=== PATIENT | male | born 2005 | race Caucasian/White ===

== ENCOUNTER 2023-07-09 00:45 | Emergency (ER) | payer MEDICAID, SELFPAY ==
[2023-07-09 00:47] VITALS: BP 134/69; PULSE 81; RESP 16; TEMP 35.7; O2SAT 100; BMI 21.7
--- NOTE | 2023-07-09 01:01 | EDS_ITS ---
HPI HPI - GI History of Present Illness Chief Complaint: Constipation Informant: patient Narrative Narrative: Patient states for the last 3 days he has been constipated, feeling like he needs to have a bowel movement but cannot, except for very small amount of hard stool. He is having some intermittent abdominal discomfort that radiates into his rectum/anus, it was more severe just prior to coming here but seems to have let off. He denies any urinary problems. Incidentally separate, he has a small painful sore on his scrotum for several days. PFSH PFSH Medical History (Updated 07/09/23 @ 01:08 by Lita Hutchins) Anxiety Depression Smoker Substance abuse Home Medications ondansetron 4 mg disintegrating tablet 4 mg PO Q8H PRN PRN Nausea #10 tabs 11/06/15 [Rx Last Taken Unknown] dicyclomine 10 mg capsule 20 mg (2 x 10 mg) PO Q6H PRN PRN abdominal pain #20 CAPSULES 07/09/23 [Rx Last Taken Unknown] polyethylene glycol 3350 17 gram oral powder packet (Miralax) 17 g PO DAILY #6 ea 07/09/23 [Rx Last Taken Unknown] Allergy/AdvReac Type Severity Reaction Status Date / Time No Known Allergies Allergy Verified 11/06/15 10:43 Surgical History (Updated 07/09/23 @ 01:08 by Lita Hutchins) History of cholecystectomy Social History Smoking Status: Never smoker ROS ROS ED Constitutional Constitutional ED: Denies chills or fever(s) Eyes Eyes: Denies change in vision or diplopia ENT ENT ED: Denies rhinorrhea or sore throat Cardiovascular Cardiovascular: Denies chest pain or palpitations Respiratory/Chest Respiratory/Chest: Denies cough or dyspnea Gastrointestinal Gastrointestinal: Reports abdominal pain and constipation; Denies diarrhea, nausea or vomiting Genitourinary Genitourinary ED: Reports other Details: scrotal painful lesion ; Denies dysuria or hematuria Musculoskeletal Musculoskeletal: Denies back pain or neck pain Integumentary Denies abscess or rash Neurologic Neurologic: Denies headache(s), paresthesias or weakness Psychiatric Psychiatric: Denies anxiety or suicidal thoughts EXAM Physical Exam Const Vital Signs: 07/09/23 00:47 Temperature 96.2 F L Temperature Source Temporal Pulse Rate 81 Respiratory Rate 16 Blood Pressure 134/69 H Blood Pressure Mean 90 Pulse Ox 100 Oxygen Delivery Method Room Air Positive well nourished and well developed General Appearance ED: well developed and NAD HEENT Reports moist mucous membranes normocephalic and atraumatic Eyes PERRL and EOMs intact bilaterally Neck full ROM and supple Resp normal respiratory effort and clear to auscultation bilaterally Cardio regular rate, regular rhythm and no murmurs GI non-distended GI Narrative: Mild tenderness suprapubic and left lower quadrant no guarding or rebound. Patient refuses rectal exam. Auscultation: normoactive bowel sounds Palpation: soft Narrative: On the left hemiscrotum there is a small papule/pustule does not appear to be ready to burst and is very tiny, there is no fluctuance or surrounding cellulitis. No petechia. Penis normal. Testicles nontender. Back/Spine no CVA tenderness General Back: other FROM Extremity normal to inspection General Extremety ED: Negative for edema, pulses abnormal or tenderness General Extremity: Negative for edema or pulses abnormal Neuro oriented x3, CN's II-XII intact bilaterally and no sensory deficits noted Sensorium / Orientation: awake and alert Motor Exam: strength 5/5 throughout Skin no rashes or lesions noted and no wounds MDM MDM MDM Narrative Medical decision making narrative: I think the patient is constipated and having colonic spasms as a result. I offered him several options. First is a rectal exam with manual disimpaction, he declines that. Second is a fleets enema and the third is a soapsuds enema, he declines all of this. I even offered to have nurses show him how to do a fleets enema and allow him to do it himself without anyone helping him, and he refuses all that wants to try MiraLAX which was option #5. He understands that it will not provide a quick fix. With regards to the pustule on his scrotum, I offered to try to pop it for him and he declines that as well. It does not a ppear to require incision and drainage. Discharge Plan Triage Chief Complaint: Constipation Other Complaint: Complaint ED Provider: Nadir Tyler Dx/Rx/DC Orders Clinical Impression: Skin pustule, Constipation Instructions: Treating Constipation Prescriptions: New polyethylene glycol 3350 [Miralax] 17 gram powder in packet 17 g PO DAILY Qty: 6 0RF dicyclomine 10 mg capsule 20 mg PO Q6H PRN PRN (Reason: abdominal pain) Qty: 20 0RF No Action ondansetron 4 MG tablet 4 mg PO Q8H PRN PRN (Reason: Nausea) Qty: 10 0RF Primary Care Provider: Mercedes Castaneda Referrals: Doctor,Your [Non-Staff] - 3-5 Days if not improving Activity Restrictions/Additional Instructions: Tonight, consider taking 3 packets of MiraLAX, dissolved in 24-32 ounces of any nonalcoholic beverage, and drink plenty of fluid afterwards and attempt to perform a miniature colon flush. Disposition Disposition: Home, Self Care
[2023-07-09] MEDS: Dicyclomine 10 MG Capsule 20 MG PO (01:06)
[2023-07-09 01:22] VITALS: BP 130/74; PULSE 75; RESP 16; TEMP 36.6; O2SAT 97
== END 2023-07-09 01:30 | disposition home or self-care (01) ==
LOC: ED 01:17
PROVIDERS: Emergency Provider Emergency Medicine; Visit Provider Emergency Medicine
DX: K59.00 Constipation, unspecified (principal); L08.9 Local infection of the skin and subcutaneous tissue, unspecified; Z90.49 Acquired absence of other specified parts of digestive tract
CPT/HCPCS: 99283

== ENCOUNTER 2023-08-16 00:21 | Emergency (ER) | payer MEDICAID, SELFPAY ==
[2023-08-16 00:24] VITALS: BP 137/99; PULSE 136; RESP 24; TEMP 36.6; O2SAT 96; BMI 22.5
--- NOTE | 2023-08-16 00:31 | RAD_ITS ---
INDICATION: injury -- thumb EXAMINATION/TECHNIQUE: X-RAY - RIGHT HAND XR Fingers Min 2 Views 4 VIEWS COMPARISON: No relevant prior comparison study available FINDINGS: SOFT TISSUES: No soft tissue swelling or gas. No radiopaque foreign body. BONES/JOINTS: No acute fracture or subluxation.. Normal alignment. Preservation of the joint space.. No sclerotic or destructive changes observed. RAD/Finger(s) Min 2 Views IMPRESSION: No fracture or malalignment. Electronically Signed: Fabien Rhodes MD at 1:19 EDT ,
--- NOTE | 2023-08-16 00:32 | EX.ED.UPPERE ---
HPI History of Present Illness Chief Complaint: Disclocation Informant: patient and parent Narrative Narrative: [id number] presents concerns about right thumb dislocation after twisting a bottle. He states he felt a crack. No paresthesias. No history of similar. [facility] Medical History Anxiety Depression Smoker Substance abuse Allergy/AdvReac Type Severity Reaction Status Date / Time No Known Allergies Allergy Verified 08/16/23 00:24 Surgical History History of cholecystectomy Social History Smoking Status: Current every day smoker tobacco type: cigarettes and e-cigarettes ROS ROS ED Constitutional Constitutional ED: Denies chills, fever(s) or sweats Eyes Eyes: Denies change in vision ENT ENT ED: Denies dysphagia or sore throat Cardiovascular Cardiovascular: Denies chest pain, leg edema, palpitations or racing heartbeat Respiratory/Chest Respiratory/Chest: Denies cough, dyspnea or dyspnea on exertion Gastrointestinal Gastrointestinal: Denies abdominal pain, diarrhea, nausea or vomiting Genitourinary Genitourinary ED: Denies dysuria, hematuria or urinary frequency Musculoskeletal Musculoskeletal: Reports extremity pain and other Details: Right thumb pain ; Denies back pain or neck pain Integumentary Denies rash or wounds Neurologic Neurologic: Denies headache(s), paresthesias or weakness EXAM Physical Exam Const Vital Signs: 08/16/23 00:24 Temperature 97.8 F Temperature Source Temporal Pulse Rate 136 H Respiratory Rate 24 H Blood Pressure 137/99 H Blood Pressure Mean 111 Pulse Ox 96 Oxygen Delivery Method Room Air Positive well nourished and well developed Constitutional Narrative: Anxious, nontoxic General Appearance ED: well developed HEENT Reports moist mucous membranes normocephalic and atraumatic Eyes PERRL, EOMs intact bilaterally and conjunctivae normal General Eye ED: Yes normal appearance of both eyes Neck no lymphadenopathy and supple General: Negative for tenderness Chest Wall Chest: Negative for tenderness Resp normal respiratory effort and normal air movement Effort and Inspection: symmetric chest movement; Negative for respiratory distress Cardio regular rhythm and no murmurs Rate: tachycardic Peripheral Pulses: pulses 2+ throughout GI normal to inspection, nondistended, normoactive bowel sounds and non-tender Palpation: Negative for guarding or rebound tenderness present Back/Spine no CVA tenderness and no thoracic nor lumbar tenderness Extremity Extremity Narrative: Right upper extremity: Hand examination. Tender palpation at MCP however is able to passively range of motion flexion extension both at the MCP and interphalangeal joint. Skin intact. Neuro vas intact distally. General Extremety ED: Yes tenderness; Negative for edema General Extremity: Negative for edema Neuro oriented x3 and no sensory deficits noted Sensorium / Orientation: awake and alert Skin no rashes or lesions noted and no wounds MDM MDM MDM Narrative Medical decision making narrative: Interventions / MDM: Differential diagnosis: Finger sprain Diagnosis considered but do not suspect: Fracture/dislocation however x-ray negative My EKG interpretation: N/A Imaging independently reviewed and interpreted by myself: 4 view x-ray right thumb: No fracture or dislocation noted. External documents reviewed: N/A Test considered but not ordered:N/A ED course: Patient concern for dislocation clinically there is no dislocation. Is anxious therefore tachycardic. Motrin ordered x-ray ordered of the right thumb. X-ray interpreted myself no fracture or dislocation. Neuro vas intact distally. AlumaFoam splint provided for comfort. Mother states there is Motrin Tylenol at home which she will take as needed. All questions were answered. Re-evaluation: stable Disposition discussed with patient/family/significant other: Patient and family Case discussed with consulting clinician: N/A This note was generated with [employer] dictation software. It may contain incorrect words, spelling, and punctuation that were not noted in checking the note before signing. Discharge Plan Triage Chief Complaint: Disclocation Other Complaint: Laceration ED Provider: James Kang Dx/Rx/DC Orders Clinical Impression: Injury of right thumb, Sprain of hand, thumb, right Instructions: ED Finger Sprain Primary Care Provider: Care Physician,No Primary Referrals: Prabha Hoffmann [Non-Staff] - 1-2 Weeks Care Physician,No Primary [Primary Care Provider] - Activity Restrictions/Additional Instructions: X-ray negative. Splint for comfort. Continue Tylenol or Motrin every 6 hours as needed. Disposition Disposition: Home, Self Care Discharge Date/Time: 08/16/23 01:02
[2023-08-16] MEDS: Ibuprofen 600 MG Tablet PO (00:35)
[2023-08-16 01:00] VITALS: RESP 16
== END 2023-08-16 01:02 | disposition home or self-care (01) ==
LOC: ED 00:53
PROVIDERS: Emergency Provider Emergency Medicine; Visit Provider Emergency Medicine
DX: S63.91XA Sprain of unspecified part of right wrist and hand, initial encounter (principal); F17.210 Nicotine dependence, cigarettes, uncomplicated; S69.81XA Other specified injuries of right wrist, hand and finger(s), initial encounter; X58.XXXA Exposure to other specified factors, initial encounter; F17.290 Nicotine dependence, other tobacco product, uncomplicated
CPT/HCPCS: 73140; 99283

== ENCOUNTER 2024-03-16 14:20 | Inpatient (IN) | payer SELFPAY ==
[2024-03-16] VITALS (7 sets, daily range): BP systolic 104–120; BP diastolic 70–76; PULSE 67–89; RESP 14–20; TEMP 36.4–36.8; O2SAT 94–100; BMI 22.8; BMI 20.4
[2024-03-16] MEDS: Naloxone 2 MG/2 ML Syringe IV (14:32)
[2024-03-16] MEDS: Ondansetron 4 MG/2 ML Vial IV (14:39)
--- NOTE | 2024-03-16 14:42 | EX.ED.DYSGE1 ---
HPI History of Present Illness Chief Complaint: Substance Abuse Narrative Narrative: Patient is a 18-year-old male with a past medical history of substance abuse, anxiety, depression who presented to the emergency department chief complaint of overdose. Patient states that he was using meth and fentanyl today and according to his mother at bedside he overdosed and a friend of his gave him Narcan prior to arrival here. States that she was told that he turned blue which was ultimately what prompted them to give the Narcan. Patient states that he has not been suicidal homicidal. Patient does want to go through detox. [facility] Medical History Anxiety Depression Substance abuse Smoker Home Medications ?Medication ?Instructions ?Recorded ?Last Taken ?Type NK 03/16/24 Unknown History Allergy/AdvReac Type Severity Reaction Status Date / Time No Known Allergies Allergy Verified 03/16/24 14:29 Surgical History History of cholecystectomy Social History Smoking Status: Current every day smoker tobacco type: cigarettes and e-cigarettes ROS ROS ED ROS Narrative Constitutional: Denies any fevers, chills, headaches, lightness, dizziness Eyes: Denies change in vision double vision blurry vision Cardiovascular: Denies chest pain Respiratory: Denies coughing wheezing shortness of breath Abdomen: Admits to nausea denies abdominal pain diarrhea Neurological: Denies numbness, weakness, tingling Musculoskeletal: Denies back pain Skin: Denies rashes or lesions EXAM Physical Exam Narrative Exam Narrative: General: Patient lying in bed he appeared to be not feeling well with emesis bag in hand Head: Atraumatic, normocephalic Eyes: PERRL bilateral, EOMI by, no conjunctival injection noted Neck: Soft, supple, trachea midline Cardiovascular: Regular rate and rhythm no murmur gallops or rubs noted Respiratory: Clear to auscultation bilaterally no rales rhonchi wheeze noted Abdomen: No tenderness palpation Extremities: +5/5 strength noted in the bilateral lower extremities Neurological: Patient following commands knew that he was at [facility] Skin: Warm, dry and intact Const Vital Signs: 03/16/24 14:21 03/16/24 15:21 03/16/24 16:00 Temperature 97.5 F L Temperature Source Temporal Pulse Rate 88 76 78 Respiratory Rate 18 20 H 16 Blood Pressure 111/76 104/70 109/73 Blood Pressure Mean 87 81 85 Pulse Ox 99 98 98 Oxygen Delivery Method Room Air Room Air Room Air 03/16/24 17:00 03/16/24 17:32 03/16/24 18:00 Temperature 98.2 F Temperature Source Pulse Rate 89 74 67 Respiratory Rate 18 16 14 Blood Pressure 110/71 118/74 120/71 Blood Pressure Mean 84 88 87 Pulse Ox 100 98 98 Oxygen Delivery Method Room Air MDM MDM MDM Narrative Medical decision making narrative: Patient is a 18-year-old male who presents to the emergency department with a chief complaint of overdose. Patient received Narcan prior to arrival and then once again when he arrived here. Patient will have medical clearance here and then be evaluated for detox program. Patient CBC reviewed and was largely unremarkable no evidence leukocytosis white blood count normal at 9.1, hemoglobin 16.2, platelet count normal at 323. Patient sodium normal at 136, potassium was 3.3, creatinine normal at 1.04. Patient drug screen was positive for amphetamine, MDMA, cannabis. Alcohol level is less than 3. Social work had discussion with the patient at bedside and he would like to proceed inpatient detox. Patient's case was discussed with the hospitalist Dr. Liu who accept patient for admission. Patient notified is agreeable this plan all question concerns answered at bedside. Lab Data Labs: Laboratory Results - last 24 hr 03/16/24 03/16/24 14:20 14:25 WBC 9.1 RBC 5.45 Hgb 16.2 Hct 46.7 MCV 85.7 MCH 29.7 MCHC 34.7 RDW Std Deviation 38.8 RDW Coeff of Phuong 12.7 Plt Count 323 MPV 8.9 Immature Gran % (Auto) 0.600 Neut % (Auto) 60.2 Lymph % (Auto) 31.2 [place] % (Auto) 6.1 Eos % (Auto) 1.0 Baso % (Auto) 0.9 Absolute Neuts (auto) 5.5 Absolute Lymphs (auto) 2.83 Nucleated RBC % 0 Sodium 136 Potassium 3.3 L Chloride 100 Carbon Dioxide 28.0 Anion Gap 8 BUN 12 Creatinine 1.04 Estim Creat Clear Calc 129.65 Est GFR (MDRD) Af Amer 116 Est GFR (MDRD) Non-Af 96 BUN/Creatinine Ratio 11.5 Glucose 131 H Calcium 9.1 Urine Opiates Screen NEGATIVE Urine Methadone Screen NEGATIVE Ur Barbiturates Screen NEGATIVE Ur Phencyclidine Scrn NEGATIVE Ur Amphetamines Screen POSITIVE H MDMA (Ecstasy) Screen POSITIVE H U Benzodiazepines Scrn NEGATIVE Urine Cocaine Screen NEGATIVE U Cannabinoids Screen POSITIVE H Ur Drug Screen Comment Ethyl Alcohol < 3.0 Discharge Plan Triage Chief Complaint: Substance Abuse ED Provider: Clive Aponte Dx/Rx/DC Orders Clinical Impression: Active substance abuse Prescriptions: No Action NK Primary Care Provider: Care Physician,No Primary Referrals: Care Physician,No Primary [Primary Care Provider] - Print Language: Slovak Disposition Disposition: Acute Care Hospital [facility]
[2024-03-16 14:47] LABS: Absolute Lymphocyte Count 2.83 X10^3/uL (0.83-4.51); Absolute Neutrophil Count 5.5 X10^3/uL (2.0-7.7); Basophil# 0.08 X10^3/uL; Basophil% 0.9 % (0-1); Eosinophil# 0.09 X10^3/uL; Hematocrit 46.7 % (40-54); Hemoglobin 16.2 g/dL (13.0-16.5); Lymphocyte # 2.83 X10^3/ul (0.83-4.51); Lymphocyte % 31.2 % (19-41); Mean Corp Hgb Conc 34.7 g/dL (32-36); Mean Corpuscular Hgb 29.7 pg (27.0-32.0); Mean Corpuscular Volume 85.7 fL (80-94); Mean Platelet Vol. 8.9 fl (6.2-12.0); Monocyte# 0.55 X10^3/uL; Monocyte% 6.1 % (0-10); NRBC Flagged by Analyzer 0 % (0-5); Neutrophil # 5.46 X10^3/uL (2.7-7.7); Neutrophil % 60.2 % (47-70); Platelet Count 323 K/mm3 (150-450); RBC Distribution Width CV 12.7 % (11.6-14.6); RBC Distribution Width SD 38.8 fl (35.1-43.9); Red Blood Count 5.45 M/mm3 (4.6-6.2); White Blood Count 9.1 K/mm3 (4.4-11.0)
[2024-03-16 15:04] LABS: Anion Gap 8 (5-15); BUN 12 mg/dL (7-18); BUN/Creat Ratio 11.5 RATIO (10-20); Calcium,Total 9.1 mg/dL (8.5-10.1); Chloride 100 mmol/L (98-107); Creatinine, Serum 1.04 mg/dL (0.70-1.30); EST Glomerular Filtration Rate 96 mL/min (>60); Est Glom Filt Rate - Afr Amer 116 mL/min (>60); Estimated Creatinine Clearance 129.65 ml/min; Glucose 131 mg/dL (74-106); Potassium 3.3 mmol/L (3.5-5.1); Sodium Level 136 mmol/L (136-145)
[2024-03-16 15:17] LABS: Alcohol, Blood (Medical)-Serum < 3.0 mg/dL
[2024-03-16 16:49] LABS: Amphetamine Urine VISTA POSITIVE (<1000 ng/mL); Barbiturate Urine VISTA NEGATIVE (< 200 ng/mL); Benzodiazepine Urine VISTA NEGATIVE (< 200 ng/mL); Cocaine Urine VISTA NEGATIVE (< 300 ng/mL); Ecstacy Urine VISTA POSITIVE (< 500 ng/mL); Methadone Urine VISTA NEGATIVE (< 300 ng/mL); PCP Urine VISTA NEGATIVE (< 25 ng/mL); THC Urine VISTA POSITIVE (< 50 ng/mL); Vista UDS pH Range 5
--- NOTE | 2024-03-16 18:12 | ED.RN ---
tao hinton talked at length with pt. pt agreeable to [facility] for [facility] program after reviewing the contract. signed cotract jorge hinton
--- NOTE | 2024-03-16 18:40 | HP.PCM.HOS_ITS ---
HPI - General General Date of Admission: 03/16/24 Date of Service: 03/16/24 Chief Complaint: Opiate overdose HPI Narrative DARI MENDOSA, is a 18 M who presented to the emergency department at [facility] on 03/15/2024 after being brought here by a friend. He evidently had an overdose with methamphetamines and fentanyl according to his mother with whom he presented. A friend gave him Narcan prior to arrival. His mother was told he turned blue which was ultimately what prompted Narcan utilization. Apparently, there is a long family history of substance abuse with family members currently trying to achieve and maintain sobriety. Patient's drug of choice is methamphetamines at baseline and he recently started using opiates within the last month. He has unable to tell me how much he is using on a daily basis but has been using daily as of recently. He also admits to tobacco abuse/marijuana use and denies any alcohol use. He has never been through detox before. Vital signs on presentation showed temperature of 97.5, heart rate 88, respiratory rate 18, blood pressure 111/76 and pulse ox was 99 percent on room air. CBC was unremarkable. Chemistry panel showed mild hypokalemia potassium of 3.3 but was otherwise fairly unremarkable. Toxicology screen was positive for amphetamines, ecstasy, cannabinoids and negative for alcohol. [facility] Medical History Asthma Anxiety Depression Substance abuse Smoker Home Medications ?Medication ?Instructions ?Recorded ?Last Taken ?Type NK 03/16/24 Unknown History Allergy/AdvReac Type Severity Reaction Status Date / Time No Known Allergies Allergy Verified 03/16/24 14:29 Family History (Updated 03/16/24 @ 20:[address] Kimberly Liu DO) Other Substance abuse Surgical History History of cholecystectomy Social History (Updated 03/16/24 @ 20:[address] Kimberly Liu DO) housing: homeless current occupational status: unemployed Smoking Status: Current every day smoker tobacco type: cigarettes and e- cigarettes alcohol intake: never substance use type: marijuana, amphetamines and opiates ROS Constitutional Constitutional: Denies anorexia, change in weight, chills, fatigue, fever(s), malaise, night sweats, weakness or other Eyes Eyes: Denies blurry vision, change in eye color, change in vision, discharge from eye(s), double vision, erythema, eye pain, loss of vision or other ENT HEENT: Denies abnormal hearing, dysphagia, ear pain, epistaxis, headache(s), hearing loss, nasal congestion, nasal discharge, post nasal drip, sinus pressure, sore throat or other Cardiovascular Cardiovascular: Denies chest pain, claudication, dyspnea on exertion, edema, lightheadedness, orthopnea, palpitations, paroxysmal nocturnal dyspnea, rapid heart rate, syncope or other Respiratory/Chest Respiratory/Chest: Denies cough, dyspnea, excessive phlegm production, hemoptysis, productive cough, shortness of breath at rest, shortness of breath with exertion, wheezing or other Gastrointestinal Gastrointestinal: Denies abdominal pain, coffee ground emesis, constipation, diarrhea, dyspepsia, hematemesis, hematochezia, loose stools, melena, nausea, vomiting or other Genitourinary Genitourinary: Denies burning urination, difficulty urinating, dysuria, hematuria, nocturia, urinary frequency, urinary hesitancy, urinary incontinence, urinary urgency or other Musculoskeletal Musculoskeletal: Denies arthralgias, back pain, joint pain, joint stiffness, joint swelling, myalgias, neck pain or other Neurologic Neurologic: Denies abnormal gait, abnormal speech, confusion, disequilibrium, dizziness, focal weakness, headache(s), numbness, paresthesias, seizure-like activity, seizures, syncope, tingling, tremor(s) or other Psychiatric Psychiatric: Denies anxiety, depression, homicidal ideation, suicidal ideation or other Endocrine Endocrinology: Denies change in body appearance, cold intolerance, excessive sweating, heat intolerance, polydipsia, polyuria or other Hematologic/Lymphatic Hematologic/Lymphatic: Denies anemia, easy bleeding, easy bruising, lymphadenopathy or other Allergic/Immunologic Allergic/Immunologic: Denies rhinitis, hives, eczemia, asthma or other Vital Signs Vital Signs Vital Signs: 03/16/24 14:21 03/16/24 15:21 03/16/24 16:00 Temperature 97.5 F L Temperature Source Temporal Pulse Rate 88 76 78 Respiratory Rate 18 20 H 16 Blood Pressure 111/76 104/70 109/73 Blood Pressure Mean 87 81 85 Pulse Ox 99 98 98 Oxygen Delivery Method Room Air Room Air Room Air 03/16/24 17:00 03/16/24 17:32 03/16/24 18:00 Temperature 98.2 F Temperature Source Pulse Rate 89 74 67 Respiratory Rate 18 16 14 Blood Pressure 110/71 118/74 120/71 Blood Pressure Mean 84 88 87 Pulse Ox 100 98 98 Oxygen Delivery Method Room Air Weight Weight: 80.9 kg Body Mass Index (BMI) 22.8 Physical Exam Const oriented x3, no apparent distress and average body habitus; Negative for healthy appearing or well nourished Constitutional Narrative: Sleepy but oriented, young, thin, white male, sitting up in bed, somewhat diaphoretic likely related to Narcan, appears comfortable, nontoxic, somewhat disinterested in conversation HEENT normocephalic, head/scalp atraumatic, hearing grossly normal bilaterally and moist oral mucous membranes HEENT Narrative: Mallampati 2, no thrush Resp normal respiratory effort, no retractions, no use of accessory muscles and clear to auscultation bilaterally Auscultation: Negative for rales, rhonchi or wheezes Cardio regular rate, regular rhythm, S1 normal heart sound, S2 normal heart sound, no murmurs, no rub, no gallops and no clicks GI normal to inspection, nondistended, normoactive bowel sounds, soft to palpation and non-tender Extremity no clubbing, cyanosis or edema Extremity Narrative: Pedal and radial pulses are 2+ Neuro oriented x3, moves all extremities and no focal motor deficits Speech: speech normal Psych Psych Narrative: Affect is flat and mood is depressed with poor eye contact and minimal interaction Results Lab / Micro Data 03/16/24 14:25 03/16/24 14:25 Labs: Laboratory Results - last 24 hr 03/16/24 14:20: Urine Opiates Screen NEGATIVE, Urine Methadone Screen NEGATIVE, Ur Barbiturates Screen NEGATIVE, Ur Phencyclidine Scrn NEGATIVE, Ur Amphetamines Screen POSITIVE H, MDMA (Ecstasy) Screen POSITIVE H, U Benzodiazepines Scrn NEGATIVE, Urine Cocaine Screen NEGATIVE, U Cannabinoids Screen POSITIVE H, Ur Drug Screen Comment 03/16/24 14:25: WBC 9.1, RBC 5.45, Hgb 16.2, Hct 46.7, MCV 85.7, MCH 29.7, MCHC 34.7, RDW Std Deviation 38.8, RDW Coeff of Phuong 12.7, Plt Count 323, MPV 8.9, Immature Gran % (Auto) 0.600, Neut % (Auto) 60.2, Lymph % (Auto) 31.2, [place] % (Auto) 6.1, Eos % (Auto) 1.0, Baso % (Auto) 0.9, Absolute Neuts (auto) 5.5, Absolute Lymphs (auto) 2.83, Nucleated RBC % 0, Sodium 136, Potassium 3.3 L, Chloride 100, Carbon Dioxide 28.0, Anion Gap 8, BUN 12, Creatinine 1.04, Estim Creat Clear Calc 129.65, Est GFR (MDRD) Af Amer 116, Est GFR (MDRD) Non-Af 96, BUN/Creatinine Ratio 11.5, Glucose 131 H, Calcium 9.1, Ethyl Alcohol < 3.0 Assessment & Plan Assessment/Plan (1) Opiate abuse, continuous: (2) Methamphetamine abuse: (3) Tobacco abuse: (4) Opiate overdose: (5) Hypokalemia: PLAN: Plan Opiate abuse -Patient with overdose on presentation -Unable to tell me how much she is utilizing however he said he is a relatively new user at this time -Has been in the emergency department for an extended period time since Narcan and has remained awake -Given this he is okay for the medical floor but will monitor -Start Subutex taper per [facility] protocol -Supportive medication as needed -Patient states he uses intranasal with no history of IVDU -Consult 180 assistance with discharge planning Hypokalemia -P.o. potassium given -Repeat lab in a.m. -Check a.m. magnesium and phosphorus Methamphetamine abuse -This sounds like the patient's drug of choice -We did discuss that there is no detox for this he voices understanding Marijuana use -Recommend cessation Tobacco abuse -Nicotine patch available -Patient states he smokes about a half a pack daily Homelessness -Complicates discharge planning -Patient may benefit from inpatient rehab DVT prophylaxis -Low risk -Encourage early and frequent ambulation CODE STATUS -Full code Charges/Coding Visit Charges Inpatient E&M: 93263 Init Hosp L2
--- NOTE | 2024-03-16 18:56 | CM.ED ---
Social work Referral source: registration /Dr. Aponte Reason for referral: lack of insurance /substance use Registration informed this LETTY and LETTY Thakkar of patient's lack of insurance and the steps taken to verify this. Patient and his mother, Albina, both believed patient had active [employer], but patient is reportedly showing ineligibility. While walking to patient room, this LETTY and LETTY Thakkar met Albina by the nurses station. Albina was expressing to nursing staff her frustration with patient and her conflicting feelings. Albina reported struggling with enabling patient's substance use and walking out to take care of her own sobriety. Albina reported finishing up her own rehabilitation and being in a sober living home currently. Albina stated she would need to leave this evening to go to a meeting at [place]. Dr. Aponte entered patient room and patient reportedly changed mind denying doing inpatient detox ([facility]). Patient reportedly stated to Dr. Aponte that he wanted to do outpatient treatment instead. Dr. Aponte asked if LETTY could assist with referrals and resources. Patient did agree to this LETTY and LETTY Thakkar visit. Patient explained that he presented to the ED today because he got Narcan. Patient expressed he did some fernando today and then waking up with ice all over (actual ice cubes) and having a friend put ice down his shirt and pants in order to help patient wake up. Patient expressed not wanting to do R[facility] and patient stated his community chest officer ( Kolby ) is having him do IOP through [facility], though has not yet made steps to get into treatment. Patient reported being on probation for drug paraphernalia. Patient stated he has never done any treatment for substance use in the past and patient reported never using needles with substances. Patient reported snorting fentanyl today and patient was vague in his reporting of frequency of fentanyl use, stating only using fentanyl a few times over the last month. Patient reported ice as his drug of choice for the last three years and patient reported also using marijuana. Patient denied alcohol use and patient reported smoking 2-3 cigarettes per day. Patient reported starting to use substances due to just not caring about my life. Patient denied current suicidal thoughts and patient reported that his last suicidal thoughts were months ago. Patient reported that he has never acted on his suicidal thoughts, but patient reported having thought of overdosing in the past as a means to by suicide. Patient denied any psychosis, paranoia, or auditory/visual hallucinations with substance use. Patient reported caring about his mother, Albina, and his brother, who is currently 17 years old. Patient reported Albina currently not having custody of his brother, but patient denied his brother being in foster care. Patient reported being homeless currently, reported that being homeless sucks, and reported not having a tent anymore. Patient reported he has been getting food from friends' houses and churches. Patient stated he would sleep at his ex-girlfriend's house at times in [place]. Patient reported that his ex just got of rehab and also goes to [facility] currently, which is how patient would have a ride. Patient expressed concerns with RAMP due to watching his mother's 60 days turn into 9 months. Patient also expressed concerns due to knowing that he could not have his phone during RAMP and he would not be able to have his dog, Baby. His dog is reportedly currently with his ex. SW gently challenged patient's readiness to change, asking patient to reflect resistance to treatment due to not having phone for three days versus initiating steps to recovery if patient is actually ready to change. Through conversation patient reported feeling ready to change, which SW further explored what this means to the patient who stated people and places would be the things that would be different following treatment. Patient stated caring about his mother and his brother. After further discussion, patient was open to going over the [facility] contract with LETTY Thakkar and patient was agreeable to detox. Dr. Aponte and nursing updated with patient decision. Patient resources needed: Medicaid application, meals, housing/homeless shelters, [facility], etc. Email sent to Aleida at [facility] to inform her of patient's need to fill out Medicaid application. Plan: handoff to acute due to admission to R[facility]; SW to follow as needed. Kimberly Perason, TANK WASHER, RADIOLOGY RESIDENT
[2024-03-16] MEDS: Methocarbamol 750 MG Tablet PO (19:54)
[2024-03-16] MEDS: Potassium Chloride Oral Tablet 20 MEQ 40 MEQ PO (19:54)
--- OUTSIDE RECORDS SUMMARY | 2024-03-16 21:37 | XMS RPT_ITS | CCD ---
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 INFORMATION: Calculus of gallbladder with chronic cholecystitis without obstruction. GROSS DESCRIPTION: Received in formalin labeled with the patient's name and gallbladder is an intact gallbladder measuring 8.4 x 3.0 x 1.5 cm. The serosal surface is pink-red, smooth, and glistening. Opening reveals green, tenacious bile and a yellow, ovoid, and bosselated calculus (1.5 x 1.0 x 1.0 cm). The mucosa is brown-red and velvety. The wall averages 0.1-0.2 cm in thickness. Planner Intern sections are submitted in cassette A1. MICROSCOPIC EXAMINATION: Histologic sections show a gallbladder with patchy lymphocytic inflammation and pseudopyloric gland metaplasia consistent with chronic cholecystitis and focal cholesterolosis. There is no significant atypia. STAINS AND PROCEDURES: Stains performed have adequate controls. Testing using analyte specific reagents was developed and its performance characteristics determined by the department of Pathology of [facility]. It has not been specifically cleared or approved by the [place]A. FDA. The FDA has determined such clearance or approval is not necessary. MELISSA VERMA DO 02/22/2021 Performed By: #### L IPAS #### [place] [address] COVRP Rapid SARS-CoV-2 (COVI D-19) PCRon 02-20-2021 Rapid SARS-CoV-2 (COVID-19) PCR Not detected Normal [facility] Comment on above: Order Comment: Relea se to patient->Automatic 63634&Blood Release to patient->Automatic 18938&Urine Performed By: #### L IPAS #### [address] [address] Employed in Healthcare setting? No Normal [facility] Comment on above: Order Comment: Relea se to patient->Automatic 63549&Blood Release to patient->Automatic 53248&Urine Performed By: #### L IPAS #### [address] [address] Hospitalized? No Normal [facility] Comment on above: Order Comment: Relea se to patient->Automatic 30448&Blood Release to patient->Automatic 53331&Urine Performed By: #### L IPAS #### [address] [address] ICU? No Normal [facility] Comment on above: Order Comment: Relea se to patient->Automatic 76946&Blood Release to patient->Automatic 88651&Urine Performed By: #### L IPAS #### [place] [address] Resident in congregate care setting? No Normal [facility] Comment on above: Order Comment: Relea se to patient->Automatic 76544&Blood Release to patient->Automatic 48440&Urine Performed By: #### L IPAS #### [place] [address] SARS-CoV-2 (COVID-19) RNA BRADLEY+probe Ql (Unsp spec) Yes Normal [facility] Comment on above: Order Comment: Relea se to patient->Automatic 57456&Blood Release to patient->Automatic 87209&Urine Performed By: #### L IPAS #### [place] [address] Symptomatic as defined by CDC? No Normal [facility] Comment on above: Order Comment: Relea se to patient->Automatic 93962&Blood Release to patient->Automatic 72722&Urine Performed By: #### L IPAS #### [place] [address] ED Provider Progress Noteon 02-20-2021 Skirt Clipper Authentication Interface Message Text Dari Liu Mendosa : 2005 Chief Complaint Patient presents with Abdominal Pain No Known Allergies DOS: 02/20/2021 This pt is a 15 yr old male, with chronic abdominal pain followed by GI, who presents to ED as transfer from [place] for evaluation of possible cholecystitis. Pt states that he began to experience epigastric and LUQ abdominal pain around 9:00 pm last night. Pt states he has experienced pain similar to this multiple times over the past several months. He also reports associated nausea and non-bloody emesis. No fevers. A RUQ US at [facility] showed thickened gallbladder wall with 1.7 cm stone at neck of GB. Bilirubin, alk phos, LFT's, and WBC all wnl. 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 Pt is NPO with last meal at 2300 02/19/21. [facility] chart review shows history of irritable bowel disease Beckie Flaherty MD Review of Systems Constitutional: Negative for activity change, appetite change and fever. HENT: Negative for congestion, ear pain and sore throat. Eyes: Negative for pain and discharge. Respiratory: Negative for cough, shortness of breath and wheezing. Cardiovascular: Negative for chest pain and palpitations. Gastrointestinal: Positive for abdominal pain, nausea and vomiting. Negative for blood in stool, constipation and diarrhea. Genitourinary: Negative for difficulty urinating, flank pain, frequency, penile discharge, penile pain, scrotal swelling and testicular pain. Musculoskeletal: Negative for arthralgias and myalgias. Skin: Negative for pallor and wound. Neurological: Negative for dizziness and headaches. Psychiatric/Behavior al: Negative for agitation and confusion. History reviewed. No pertinent past medical history. Past Surgical History: Procedure Laterality Date ESOPHAGOSCOPY N/A 06/19/2020 ENDOSCOPY (UPPER AND COLONOSCOPY) + biopsies performed by Yeimi Jackson MD at [facility] OR Pediatric History Patient Parents/Guardians Albina Blandon (Mother/Guardian) Other Topics Concern Not on file Social History Narrative Not on file ED Triage Vitals Date and Time Temp Temp src Pulse Resp BP SpO2 Weight User 02/20/21 0723 36.7 C (98.1 F) Temporal 52 20 127/80 98 % 65.9 kg PJW Physical Exam Vitals and nursing note reviewed. Constitutional: General: He is not in acute distress. Appearance: He is well-developed. He is not ill-appearing. HENT: Head: Normocephalic and atraumatic. Mouth/Throat: Mouth: Mucous membranes are moist. Pharynx: Oropharynx is clear. Eyes: Extraocular Movements: Extraocular movements intact. Pupils: Pupils are equal, round, and reactive to light. Cardiovascular: Rate and Rhythm: Normal rate and regular rhythm. Heart sounds: Normal heart sounds. Pulmonary: Effort: Pulmonary effort is normal. Breath sounds: Normal breath sounds. Abdominal: General: Abdomen is flat. Bowel sounds are normal. Palpations: Abdomen is soft. Tenderness: There is abdominal tenderness in the epigastric area and left upper quadrant. There is no right CVA tenderness, left CVA tenderness, guarding or rebound. Negative signs include Miles's sign. Skin: General: Skin is warm and dry. Capillary Refill: Capillary refill takes less than 2 seconds. Neurological: General: No focal deficit present. Mental Status: He is alert. Psychiatric: Mood and Affect: Mood normal. Behavior: Behavior normal. Agree with exam as documented above- no rebound no guarding no evidence of acute abdomen, Pain only epigastric in location and in LUQ No jaundice. Beckie Flaherty MD Procedures MDM Due to OSH CT and US readings of gall bladder abnormalities will get surgical consult and keep pt NPO, outside hospital labs cbc, LFT and lipase were normal, exam is benign Beckie Flaherty MD Surgery saw patient and will admit to Dr. Starr's service with planned removal of gall bladder Beckie Flaherty MD Final diagnosis Symptomatic cholelithiasis Beckie Flaherty MD ATTENDING NOTE: Treated in my presence. I have obtained the history and examined the patient and I developed the management plan and I discussed it with the trainee. Where I added to the trainee's note is noted by my name. I reviewed the EMR Normal [facility] LABORATORYOrdered By: Rosanna Galindo on 02-20-2021 Albumin BCP dye [Mass/Vol] 4.8 G/dL Invalid Interpretation Code 3.5 - 5.0 G/dL AO ADM SS Albumin/Globulin [Mass ratio] 1.8 {ratio} Invalid Interpretation Code 1.1 - 2.5 ratio AO ADM SS ALP [Catalytic activity/Vol] 71 U/L Invalid Interpretation Code 135 - 450 U/L AO ADM SS ALT With P-5'-P [Catalytic activity/Vol] 19 U/L Invalid Interpretation Code 16 - 63 U/L AO ADM SS AST With P-5'-P [Catalytic activity/Vol] 12 U/L Invalid Interpretation Code 10 - 40 U/L AO ADM SS Bilirubin [Mass/Vol] 0.6 mg/dL Invalid Interpretation Code 0.2 - 1.0 mg/dL AO ADM SS Calcium [Mass/Vol] 9.4 mg/dL Invalid Interpretation Code 8.4 - 10.2 mg/dL AO ADM SS Chloride [Moles/Vol] 100 mmol/L Invalid Interpretation Code 98 - 107 mmol/L AO ADM SS CO2 [Moles/Vol] 24 mmol/L Invalid Interpretation Code 22 - 29 mmol/L AO ADM SS Creatinine [Mass/Vol] 0.98 mg/dL Invalid Interpretation Code 0.70 - 1.30 mg/dL AO ADM SS Electrolyte Balance 14.0 mEq/L Invalid Interpretation Code AO ADM SS Globulin 2.6 G/dL Invalid Interpretation Code AO ADM SS Glucose [Mass/Vol] 112 mg/dL Invalid Interpretation Code 70 - 105 mg/dL AO ADM SS Lipase [Catalytic activity/Vol] 75 U/L Invalid Interpretation Code 73 - 393 U/L AO ADM SS Potassium [Moles/Vol] 3.4 mmol/L Invalid Interpretation Code 3.5 - 5.1 mmol/L AO ADM SS Protein [Mass/Vol] 7.4 G/dL Invalid Interpretation Code 6.4 - 8.2 G/dL AO ADM SS Sodium [Moles/Vol] 138 mmol/L Invalid Interpretation Code 136 - 145 mmol/L AO ADM SS Urea nitrogen [Mass/Vol] 11 mg/dL Invalid Interpretation Code 7 - 18 mg/dL AO ADM SS Urea nitrogen/Creatinine [Mass ratio] 11 ratio Invalid Interpretation Code 7 - 27 ratio AO ADM SS LABORATORYOrdered By: Renetta Andrade on 02-20-2021 Appearance (U) Clear (02/20/21 2:24 AM) Invalid Interpretation Code Clear AO Auto Urine SS Basophil, Absolute 0.10 103/mcL Invalid Interpretation Code 0.00 - 0.19 10^3/mcL AO Auto Heme SS Basophils/100 WBC (Bld) 0.8 % Invalid Interpretation Code 0.0 - 2.5 % AO Auto Heme SS Bilirubin Ql (U) Negative (02/20/21 2:24 AM) Invalid Interpretation Code Negative AO Auto Urine SS Color (U) Yellow (02/20/21 2:24 AM) Invalid Interpretation Code AO Auto Urine SS Eosinophil, Absolute 0.10 103/mcL Invalid Interpretation Code 0.00 - 0.40 10^3/mcL AO Auto Heme SS Eosinophils/100 WBC (Bld) 0.7 % Invalid Interpretation Code 0.0 - 7.0 % AO Auto Heme SS Erythrocyte distribution width (RBC) [Ratio] 13.2 % Invalid Interpretation Code 11.5 - 14.5 % AO Auto Heme SS Glucose Test strip (U) [Mass/Vol] Negative Invalid Interpretation Code Negativemg/dL AO Auto Urine SS Hematocrit (Bld) [Volume fraction] 45.3 % Invalid Interpretation Code 42.0 - 52.0 % AO Auto Heme SS Hemoglobin (Bld) [Mass/Vol] 16.3 G/dL Invalid Interpretation Code 14.0 - 18.0 G/dL AO Auto Heme SS Hemoglobin Auto test strip (U) [Mass/Vol] Negative (02/20/21 2:24 AM) Invalid Interpretation Code Negative AO Auto Urine SS Ketones Ql (U) Negative Invalid Interpretation Code Negativemg/dL AO Auto Urine SS Lymphocyte, Absolute 3.50 103/mcL Invalid Interpretation Code 0.77 - 3.85 10^3/mcL AO Auto Heme SS Lymphocytes/100 WBC (Bld) 36.3 % Invalid Interpretation Code 10.0 - 50.0 % AO Auto Heme SS MCH (RBC) [Entitic mass] 30.3 pg Invalid Interpretation Code 27.0 - 31.2 pg AO Auto Heme SS MCHC (RBC) [Mass/Vol] 36.0 G/dL Invalid Interpretation Code 31.8 - 35.4 G/dL AO Auto Heme SS MCV (RBC) [Entitic vol] 84.3 fL Invalid Interpretation Code 80.0 - 94.0 fL AO Auto Heme SS Monocyte, Absolute 0.60 103/mcL Invalid Interpretation Code 0.15 - 1.00 10^3/mcL AO Auto Heme SS Monocytes/100 WBC (Bld) 6.0 % Invalid Interpretation Code 1.7 - 13.0 % AO Auto Heme SS Neutrophil, Absolute 5.40 103/mcL Invalid Interpretation Code 2.85 - 6.16 10^3/mcL AO Auto Heme SS Neutrophils/100 WBC (Bld) 56.2 % Invalid Interpretation Code 37.0 - 80.0 % AO Auto Heme SS Platelet mean volume (Bld) [Entitic vol] 8.4 fL Invalid Interpretation Code 7.4 - 10.4 fL AO Auto Heme SS Platelets (Bld) [#/Vol] 271 103/mcL Invalid Interpretation Code 130 - 400 10^3/mcL AO Auto Heme SS RBC (Bld) [#/Vol] 5.38 106/mcL Invalid Interpretation Code 4.04 - 6.13 10^6/mcL AO Auto Heme SS UA Leuk Est Negative (02/20/21 2:24 AM) Invalid Interpretation Code Negative AO Auto Urine SS UA Nitrite Negative (02/20/21 2:24 AM) Invalid Interpretation Code Negative AO Auto Urine SS UA pH 7.5 (02/20/21 2:24 AM) Invalid Interpretation Code 5.0 - 8.0 AO Auto Urine SS UA Protein Negative Invalid Interpretation Code Negativemg/dL AO Auto Urine SS UA Spec Grav 1.015 (02/20/21 2:24 AM) Invalid Interpretation Code 1.015-1.025 AO Auto Urine SS UA Specimen Type Clean Catch (02/20/21 2:24 AM) Invalid Interpretation Code AO Auto Urine SS UA Urobilinogen 0.2 E.U./dL Invalid Interpretation Code 0.2-1.0E.U./d L AO Auto Urine SS WBC (Bld) [#/Vol] 9.60 103/mcL Invalid Interpretation Code 4.60 - 10.80 10^3/mcL AO Auto Heme SS Progress Noteon 08-01-2020 Skirt Clipper Authentication Interface Message Text Dari is a 15yo white male with issues of recurrent ABD pain. Admitted from 06/16/20 to 06/19/20 due to those issues ---CT ABD - 06/08/20 - ? of left sided colitis ---Labs - 06/16/20 and Apr 2020 - CBC, LFT/BMP, ESR/CRP, Lipase, Celiac, Thyroid - negative/normal ---EGD/Colonoscopy - 06/19/20 - Visual normal; +Melanosis Coli Patient/Family did not come to the appointment today Will await further follow up to help in patient care. Nicko Null MD P - [phone] 08/01/2020 Normal [facility] Calprotectinon 06-20-2020 Calprotectin <15.6 Normal <=50.0 (Normal) [facility] Comment on above: Order Comment: Relea se to patient->Automatic 86509&Blood Release to patient->Automatic 72946&Urine Result Comment: Test Performed by: [facility] - [address] , [place] [address] Box Truck Driver: Ezequiel Lyman M.D. Ph.D.; CLIA# [id number] Performed By: #### L IPAS #### [address] [address] Basic Metabolic Panelon 05-30 Comment, BMP ----- Normal [facility] Comment on above: Order Comment: Relea se to patient->Automatic 76008&Blood Release to patient->Automatic 52441&Urine Result Comment: Slig htly hemolyzed. Performed By: #### L IVER #### [address] [address] Potassium [Moles/Vol] 4.6 mmol/L Normal 3.3-5.1 [facility] Comment on above: Order Comment: Relea se to patient->Automatic 58108&Blood Release to patient->Automatic 64240&Urine Result Comment: Slig htly hemolyzed specimen. Potassium may be falsely elevated. Performed By: #### L IVER #### [address] [address] Calcium [Mass/Vol] 9.2 mg/dL Normal 7.6-11.0 [facility] Comment on above: Order Comment: Relea se to patient->Automatic 40945&Blood Release to patient->Automatic 51736&Urine Performed By: #### L IVER #### [address] [address] Chloride [Moles/Vol] 106 mmol/L Normal 96-108 [facility] Comment on above: Order Comment: Relea se to patient->Automatic 71199&Blood Release to patient->Automatic 88589&Urine Performed By: #### L IVER #### [address] [id number] CO2 [Moles/Vol] 18.2 mmol/L Low 22.0-29.0 [facility] Comment on above: Order Comment: Relea se to patient->Automatic 37873&Blood Release to patient->Automatic &Urine Performed By: #### L IVER #### [place] [address] Creatinine [Mass/Vol] 0.82 mg/dL Normal 0.70-1.20 [facility] Comment on above: Order Comment: Relea se to patient->Automatic 96777&Blood Release to patient->Automatic 98318&Urine Result Comment: Premature 0.3-1.0 mg/dL Performed By: #### L IVER #### [place] [address] Glucose [Mass/Vol] 100 mg/dL High 70-99 [facility] Comment on above: Order Comment: Relea se to patient->Automatic 80748&Blood Release to patient->Automatic 23478&Urine Result Comment: Criteria for Diagnosis of Diabetes(Effective 10/01/10): Fasting specimen (no caloric intake for at least 8 hours). <100 mg/dl Normal 100-125 mg/dl Increased Risk for Diabetes >125 mg/dl Diagnostic for Diabetes Random Glucose (any time of day without regard to last meal). >=200 mg/dl plus Classic Symptoms of Diabetes Performed By: #### L IVER #### [place] [address] Sodium [Moles/Vol] 139 mmol/L Normal 133-145 [facility] Comment on above: Order Comment: Relea se to patient->Automatic 17616&Blood Release to patient->Automatic 25929&Urine Performed By: #### L IVER #### [place] [address] Urea nitrogen [Mass/Vol] mg/dL Normal 4-19 [facility] Comment on above: Order Comment: Relea se to patient->Automatic 81894&Blood Release to patient->Automatic 46319&Urine Performed By: #### L IVER #### [facility] [address] [place] [address] Quantiferon TB Goldon 2020 Quantiferon TB Gold Negative Normal Negative [facility] Comment on above: Result Comment: Test ing Performed: [facility] [address] [place] [address] Performed By: #### L IVER #### [address] [address] Surgical Pathology Teston Surgical Pathology Test SEE BELOW Normal [facility] Comment on above: Result Comment: MARY LOU Smart DIAGNOSIS: A. Esophagus, distal, biopsies: -Esophageal squamous mucosa with no significant histopathologic changes. B. Esophagus, proximal, biopsies: -Esophageal squamous mucosa with no significant histopathologic changes. C. Stomach, biopsies: -Gastric antral- and fundic-type mucosa with no significant histopathologic changes. D. Small bowel, duodenum, biopsies: -Duodenal mucosa with no significant histopathologic changes. E. Colon, right, biopsies: -Colonic mucosa with occasional pigment laden macrophages consistent with melanosis coli. F. Colon, transverse, biopsy: -Colonic mucosa with occasional pigment laden macrophages consistent with melanosis coli. G. Colon, left, biopsy: -Colonic mucosa with no significant histopathologic changes. H. Colon, cecum, biopsies: -Colonic mucosa with occasional pigment laden macrophages consistent with melanosis coli. SPECIMEN: A. ESOPHAGEAL BIOPSY- Distal B. ESOPHAGEAL BIOPSY- Proximal C. STOMACH, BIOPSY D. DUODENAL BIOPSY E. BOWEL, BIOPSY- Right colon F. BOWEL, BIOPSY- Transverse colon G. BOWEL, BIOPSY- Left colon H. BOWEL, BIOPSY- Cecum DATE OF SURGERY: 06/19/2020 CLINICAL INFORMATION: Generalized abdominal pain, loss of weight. GROSS DESCRIPTION: A. Received in formalin labeled with the patient's name and distal esophagus are two nelson soft tissue fragments aggregating to 0.6 x 0.1 x 0.1 cm. They are totally submitted in one cassette. B. Received in formalin labeled with the patient's name and proximal esophagus are three nelson soft tissue fragments aggregating to 0.7 to 0.1 x 0.1 cm. They are totally submitted in one cassette. C. Received in formalin labeled with the patient's name and stomach are two nelson soft tissue fragments aggregating to 0.8 x 0.3 x 0.2 cm. They are totally submitted in one cassette. D. Received in formalin labeled with the patient's name and duodenum are two nelson soft tissue fragments aggregating to 0.4 x 0.1 x 0.1 cm. They are totally submitted in one cassette. E. Received in formalin labeled with the patient's name and right colon are two nelson soft tissue fragments aggregating to 0.3 x 0.1 x 0.1 cm. They are totally submitted in one cassette. F. Received in formalin labeled with the patient's name and transverse colon is a nelson soft tissue fragment measuring 0.3 x 0.2 x 0.1 cm. It is totally submitted in one cassette. G. Received in formalin labeled with the patient's name and left colon is a nelson soft tissue fragment measuring 0.4 x 0.2 x 0.1 cm. It is totally submitted in one cassette. H. Received in formalin labeled with the patient's name and cecum are two nelson soft tissue fragments aggregating to 0.4 x 0.1 x 0.1 cm. They are totally submitted in one cassette. MICROSCOPIC EXAMINATION: A-B. Histologic sections show squamous mucosa with normal maturation and no evidence of inflammation, metaplasia, or atypia. C. Histologic sections show gastric mucosa with unremarkable glandular architecture. There is no significant lamina propria inflammatory cell population. There is no neutrophilic, eosinophilic, or granulomatous inflammation. D. Histologic sections show duodenal mucosa with unremarkable villous and crypt architecture. The lamina propria inflammatory cell population is unremarkable. There is no increase in intraepithelial lymphocytes. There is no neutrophilic, eosinophilic, or granulomatous inflammation. E. Histologic sections show colonic mucosa with unremarkable crypt architecture. The lamina propria shows scattered pigment laden macrophages and an otherwise unremarkable inflammatory cell population. There is no neutrophilic, eosinophilic, or granulomatous inflammation. F. Histologic sections show colonic mucosa with unremarkable crypt architecture. The lamina propria shows scattered pigment laden macrophages and an otherwise unremarkable inflammatory cell population. There is no neutrophilic, eosinophilic, or granulomatous inflammation. G. Histologic sections show colonic mucosa with unremarkable crypt architecture and an unremarkable lamina propria inflammatory cell population. There is no neutrophilic, eosinophilic, or granulomatous inflammation. H. Histologic sections show colonic mucosa with unremarkable crypt architecture. The lamina propria shows scattered pigment laden macrophages and an otherwise unremarkable inflammatory cell population. There is no neutrophilic, eosinophilic, or granulomatous inflammation. STAINS AND PROCEDURES: Stains performed have adequate controls. Testing using analyte specific reagents was developed and its performance characteristics determined by the department of Pathology of [facility]. It has not been specifically cleared or approved by the [place]. FDA. The FDA has determined such clearance or approval is not necessary. CoraArianna VERMA, DO 06/20/2020 Performed By: #### L IVER #### [address] [address] eGFRon 06-19-2020 eGFR 89.90 Normal [facility] Comment on above: Order Comment: Relea se to patient->Automatic 61057&Blood Release to patient->Automatic 63871&Urine Result Comment: Refe rence range: > 3 months: >90 ml/min/1.73m^2 Ref. Range change effective 07/21/2017 Performed By: #### L IVER #### [address] [address] [facility] SARS-CoV-2 (COVID-19) RT-PCR, Qualitativeon 06-18-2020 SARS-CoV-2 (COVID-19) RT-PCR, Qualitative Not detected Normal [facility] Comment on above: Order Comment: Relea se to patient->Automatic 10038&Blood Release to patient->Automatic 67471&Urine Performed By: #### L IVER #### [address] [address] [facility] SARS-CoV-2 (COVID-19) RT-PCR, Qualitativeon 06-17-2020 Employed in Healthcare setting? No Normal [facility] Comment on above: Order Comment: Relea se to patient->Automatic 52041&Blood Release to patient->Automatic 43928&Urine Performed By: #### L IVER #### [address] [id number] First COVID-19 test? Yes Normal [facility] Comment on above: Order Comment: Relea se to patient->Automatic 08571&Blood Release to patient->Automatic 19870&Urine Performed By: #### L IVER #### [place] [address] Hospitalized? Yes Normal [facility] Comment on above: Order Comment: Relea se to patient->Automatic 02841&Blood Release to patient->Automatic 83988&Urine Performed By: #### L IVER #### [place] [address] ICU? No Normal [facility] Comment on above: Order Comment: Relea se to patient->Automatic 35906&Blood Release to patient->Automatic 81057&Urine Performed By: #### L IVER #### [place] [address] Resident in congregate care setting? No Normal [facility] [facility] Comment on above: Order Comment: Relea se to patient->Automatic 81184&Blood Release to patient->Automatic 71291&Urine Performed By: #### L IVER #### [place] [address] Symptomatic as defined by [facility]? No [facility] Comment on above: Order Comment: Relea se to patient->Automatic 05202&Blood Release to patient->Automatic 22316&Urine Performed By: #### L IVER #### [place] [address] Hepatitis Acute Panelon 02-2 Hep B Core Ab, IgM Negative Normal Negative [facility] Comment on above: Performed By: #### L IVER #### [place] [address] Hepatitis A Ab, IgM Negative Normal Negative [facility] Comment on above: Result Comment: Resu lt does not exclude the possibility of exposure to hepatitis A virus. Antibody level during early infection stage may be below the limit of detection of the assay. Performed By: #### L IVER #### [address] [id number] Hepatitis Bs Antigen Negative Normal Negative [facility] Comment on above: Performed By: #### L IVER #### [address] [id number] Hepatitis C Antibody Negative Normal Negative [facility] Comment on above: Result Comment: Sign ev-qc-bpbmrx ratio is <1.00. Test Performed by: [place] [address] Box Truck Driver: Ezequiel Lyman M.D. Ph.D.; CLIA# [id number] Performed By: #### L IVER #### [address] [address] [place] [facility] 06-17-2020 [facility] COMMENTS [facility] Comment on above: Order Comment: Relea se to patient->Automatic 71908&Blood Release to patient->Automatic 92242&Urine Result Comment: Test Result Flag Unit RefValue Varicella-Zoster Ab, IgG, S Positive Results suggest response to immunization or prior exposure to the virus. REFERENCE VALUE Vaccinated: Positive (>=1.1 AI) Unvaccinated: Negative (<=0.8 AI) Varicella IgG Antibody Index 2.0 Test Performed by: [place] [address] Box Truck Driver: Ezequiel Lyman M.D. Ph.D.; CLIA# [id number] Testing Performed [address] [address] Performed By: #### L IVER #### [address] [address] Vitamin D 25 OHon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 change, chills, fever and unexpected weight change. HENT: Positive for sore throat (from frequent vomiting). Negative for congestion and rhinorrhea. Respiratory: Negative for shortness of breath and wheezing. Cough: productive cough. Gastrointestinal: Positive for abdominal pain, constipation, nausea and vomiting. Negative for blood in stool and diarrhea. Genitourinary: Positive for dysuria. Negative for difficulty urinating, flank pain, frequency and urgency. Neurological: Negative for dizziness, weakness, light-headedness and headaches. All other systems reviewed and are negative. History reviewed. No pertinent past medical history. History reviewed. No pertinent surgical history. Pediatric History Patient Parents/Guardians Albina Blandon (Mother/Guardian) Other Topics Concern Not on file Social History Narrative Not on file ED Triage Vitals Date and Time Temp Temp src Pulse Resp BP SpO2 Weight User 06/08/20 1119 -- -- -- -- -- -- 83.6 kg AD 06/08/20 1119 36.3 C (97.3 F) Temporal 62 20 108/85 -- -- TLB Physical Exam Constitutional: General: He is in acute distress. Appearance: He is well-developed and normal weight. He is not ill-appearing, toxic-appearing or diaphoretic. HENT: Head: Normocephalic and atraumatic. Mouth/Throat: Pharynx: No pharyngeal swelling or oropharyngeal exudate. Oropharynx is clear. Eyes: Extraocular Movements: Extraocular movements intact. Pupils: Pupils are equal, round, and reactive to light. Cardiovascular: Rate and Rhythm: Normal rate and regular rhythm. Heart sounds: Normal heart sounds. No murmur. No friction rub. No gallop. Pulmonary: Effort: Pulmonary effort is normal. No respiratory distress. Breath sounds: Normal breath sounds. No stridor. No wheezing, rhonchi or rales. Chest: Chest wall: No tenderness. Abdominal: General: Abdomen is flat. Bowel sounds are normal. There is no distension or abdominal bruit. There are no signs of injury. Palpations: Abdomen is soft. Tenderness: There is abdominal tenderness in the suprapubic area, left upper quadrant and left lower quadrant. There is no guarding or rebound. Negative signs include Miles's sign, Rovsing's sign and McBurney's sign. Skin: General: Skin is warm. Capillary Refill: Capillary refill takes less than 2 seconds. Neurological: Mental Status: He is alert and oriented to person, place, and time. Procedures MDM Number of Diagnoses or Management Options Chronic colitis Terminal ileitis without complication Diagnosis management comments: 15 y/o with acute on chronic abdominal pain with 4-5 days of N/V, poor PO intake, lightheadedness without improvement from Zofran, NSAIDs and Protonix. Given hx of stress and family hx of UC - will treat with Zofran and Bolus fluid. Will check CBC, BMP, HFP, Lipase, CRP, UA/Ucx. Labs are unremarkable. Pt continues to have some abdominal pain. Completed 1L bolus. Will get CT abdomen. Telemonitor showed sinus bradycardia with HR down to 50's. Remains asymptomatic. EKG shows normal sinus rhythm. CT abdomen shows normal appendix, chronic colitis of the descending colon and recto-sigmoid colon with possible terminal ileitis. Discussed case with GI, recommended treating symptoms with Levsin and close follow up with GI. Tolerated PO challenge and was discharged to home on Levsin. ED Course: Diagnosis' considered: Labs/Radiology: CT ABDOMEN/PELVIS WITH IV CONTRAST Final Result IMPRESSION: 1. Findings suspicious for chron (more content not included)... Normal [facility] Hepatic Panelon 06-08-2020 Albumin [Mass/Vol] 4.6 g/dL High 3.2-4.5 [facility] Comment on above: Order Comment: Relea se to patient->Automatic 38843&Blood Release to patient->Automatic 69094&Urine Performed By: #### L IVER #### [address] [address] ALP [Catalytic activity/Vol] 61 U/L Normal 52-141 [facility] Comment on above: Order Comment: Relea se to patient->Automatic 73307&Blood Release to patient->Automatic 58809&Urine Performed By: #### L IVER #### [address] [address] ALT [Catalytic activity/Vol] 14 U/L Normal 0-41 [facility] Comment on above: Order Comment: Relea se to patient->Automatic 08240&Blood Release to patient->Automatic 28186&Urine Performed By: #### L IVER #### [address] [address] AST [Catalytic activity/Vol] 15 U/L Normal 0-37 [facility] Comment on above: Order Comment: Relea se to patient->Automatic 14199&Blood Release to patient->Automatic 12987&Urine Performed By: #### L IVER #### [address] [address] Bili,Conjugated 0.1 mg/dL Normal 0.0-0.7 [facility] Comment on above: Order Comment: Relea se to patient->Automatic 80939&Blood Release to patient->Automatic 75900&Urine Performed By: #### L IVER #### [address] [address] Bili,Total 0.8 mg/dl Normal 0.0-1.0 [facility] Comment on above: Order Comment: Relea se to patient->Automatic 41660&Blood Release to patient->Automatic 76471&Urine Performed By: #### L IVER #### [address] [address] Protein [Mass/Vol] 7.1 g/dL Normal 6.0-8.0 [facility] Comment on above: Order Comment: Relea se to patient->Automatic 06639&Blood Release to patient->Automatic 94969&Urine Performed By: #### L IVER #### [place] [address] Lipaseon 06-08-2020 Lipase [Catalytic activity/Vol] 19 U/L Normal 16-63 [facility] Comment on above: Order Comment: Relea se to patient->Automatic 70803&Blood Release to patient->Automatic 57253&Urine Performed By: #### L IPAS #### [place] [address] Urinalysis,Automatedon 06-08 Mucous Small Normal [facility] Comment on above: Order Comment: Relea se to patient->Automatic 59156&Blood Release to patient->Automatic 84141&Urine Performed By: #### U FMIC #### [place] [address] RBC (U) [#/Vol] 1.0 /uL Normal 0.0-20.0 [facility] Comment on above: Order Comment: Relea se to patient->Automatic 76608&Blood Release to patient->Automatic 18184&Urine Performed By: #### U FMIC #### [place] [address] WBC (U) [#/Vol] 3.0 /uL Normal 0.0-20.0 [facility] Comment on above: Order Comment: Relea se to patient->Automatic 23497&Blood Release to patient->Automatic 92908&Urine Performed By: #### U FMIC #### [place] [address] Urinalysis,Completeon 2020 Urobilinogen (U) [Mass/Vol] 2.0 mg/dL Abnormal Negative [facility] Comment on above: Order Comment: Relea se to patient->Automatic 60787&Blood Release to patient->Automatic 56419&Urine Performed By: #### U ACOM #### [address] [address] Volume 12 ml Normal 12 [facility] Comment on above: Order Comment: Relea se to patient->Automatic 83008&Blood Release to patient->Automatic 20890&Urine Performed By: #### U ACOM #### [address] [address] Bilirubin,urine Negative Normal Negative [facility] Comment on above: Order Comment: Relea se to patient->Automatic 76758&Blood Release to patient->Automatic 61334&Urine Performed By: #### U ACOM #### [address] [address] Character Clear Normal [facility] Comment on above: Order Comment: Relea se to patient->Automatic 92197&Blood Release to patient->Automatic 79496&Urine Performed By: #### U ACOM #### [address] [address] Color (U) Yellow Normal [facility] Comment on above: Order Comment: Relea se to patient->Automatic 77293&Blood Release to patient->Automatic 87805&Urine Performed By: #### U ACOM #### [address] [address] Glucose Ql (U) Negative Normal Negative [facility] Comment on above: Order Comment: Relea se to patient->Automatic 60574&Blood Release to patient->Automatic 01488&Urine Performed By: #### U ACOM #### [address] [address] Ketones Ql (U) TRACE Normal Negative [facility] Comment on above: Order Comment: Relea se to patient->Automatic 11592&Blood Release to patient->Automatic 48356&Urine Performed By: #### U ACOM #### [address] [address] Leukocyte esterase Test strip Ql (U) Negative Normal Negative [facility] Comment on above: Order Comment: Relea se to patient->Automatic 19696&Blood Release to patient->Automatic 88024&Urine Performed By: #### U ACOM #### [address] [address] Nitrite Ql (U) Negative Normal Negative [facility] Comment on above: Order Comment: Relea se to patient->Automatic 93607&Blood Release to patient->Automatic 95531&Urine Performed By: #### U ACOM #### [place] [address] pH, Urine 6.0 Normal 5.0-8.0 [facility] Comment on above: Order Comment: Relea se to patient->Automatic 16363&Blood Release to patient->Automatic 28507&Urine Performed By: #### U ACOM #### [place] [address] Protein,Ur Negative Normal Neg.-Trace [facility] Comment on above: Order Comment: Relea se to patient->Automatic 39622&Blood Release to patient->Automatic 75173&Urine Performed By: #### U ACOM #### [address] [address] Specific gravity (U) [Rel density] 1.027 Normal 1.005-1.030 [facility] Comment on above: Order Comment: Relea se to patient->Automatic 12313&Blood Release to patient->Automatic 77299&Urine Performed By: #### U ACOM #### [place] [address] Urine Cultureon 06-08-2020 Bacteria identified Cx Nom (U) Release to patient->Automatic 75428&Urine-CCMS Urine Culture: No growth. Source: [facility] Collected: 06/08/20 13:50 Site: Received : 06/08/20 14:26 Urine Culture FINAL 06/10/20 11:01 No growth. No growth. Normal [facility] Comment on above: Performed By: #### U RINE #### [address] [address] eGFRon 06-08-2020 eGFR see below Normal [facility] Comment on above: Order Comment: Relea se to patient->Automatic 00354&Blood Release to patient->Automatic 19233&Urine Result Comment: Refe rence range: > 3 months: >90 ml/min/1.73m^2 Ref. Range change effective 07/21/2017 Unable to calculate EGFR; height not available. - To manually calculate eGFR use Bedside Almeida equation. - (0.41 X height in centimeters)/serum creatinine mg/dL Performed By: #### E GFR #### [address] [address] XR HAND RT MIN 3Von 06-24-19 20 INR Coag (Bld) [Relative time] EXAM: XR HAND RT MIN 3V HISTORY: Pain in right hand COMPARISON: None. FINDINGS: There is a volarly displaced fracture of the head of the fifth metacarpal with overlying soft tissue swelling. No additional fracture or dislocation. IMPRESSION: Volarly displaced fracture of the head of the fifth metacarpal. Normal [facility] Vital Signs Date Time Vital Sign Value Performing Clinician Facility 08-07-2023 22:56-0400 Diastolic blood pressure 71 mm[Hg] RENETTA OMALLEY MD [facility] 08-07-2023 22:56-0400 Heart rate 98 /min RENETTA OMALLEY MD [facility] 08-07-2023 22:56-0400 Respiratory rate 16 /min RENETTA OMALLEY MD [facility] 08-07-2023 22:56-0400 Systolic blood pressure 122 mm[Hg] RENETTA OMALLEY MD [facility] 08-07-2023 21:30-0400 Blood Pressure Cuff Size RENETTA OMALLEY MD [facility] 08-07-2023 21:30-0400 Blood Pressure Location RENETTA OMALLEY MD [facility] 08-07-2023 21:30-0400 Blood Pressure Method RENETTA OMALLEY MD [facility] 08-07-2023 21:30-0400 Diastolic Blood Pressure Non-Invasive 93 mm[Hg] RENETTA OMALLEY MD [facility] 08-07-2023 21:30-0400 Heart rate 104 /min RENETTA OMALLEY MD [facility] 08-07-2023 21:30-0400 Respiratory rate 20 /min RENETTA OMALLEY MD [facility] 08-07-2023 21:30-0400 Systolic Blood Pressure Non-Invasive 122 mm[Hg] RENETTA OMALLEY MD [facility] 08-07-2023 20:34-0400 Blood Pressure Cuff Size RENETTA OMALLEY MD [facility] 08-07-2023 20:34-0400 Blood Pressure Location RENETTA OMALLEY MD [facility] 08-07-2023 20:34-0400 Blood Pressure Method RENETTA OMALLEY MD [facility] 08-07-2023 20:34-0400 Body height 188 cm RENETTA OMALLEY MD [facility] 08-07-2023 20:34-0400 Body temperature 97.16 [degF] RENETTA OMALLEY MD [facility] 08-07-2023 20:34-0400 Body weight 72.7 kg RENETTA OMALLEY MD [facility] 08-07-2023 20:34-0400 Diastolic Blood Pressure Non-Invasive 74 mm[Hg] RENETTA OMALLEY MD [facility] 08-07-2023 20:34-0400 Heart rate 126 /min RENETTA OMALLEY MD [facility] 08-07-2023 20:34-0400 Reason For Taking VItal Signs RENETTA OMALLEY MD [facility] 08-07-2023 20:34-0400 Respiratory rate 20 /min RENETTA OMALLEY MD [facility] 08-07-2023 20:34-0400 Systolic Blood Pressure Non-Invasive 123 mm[Hg] RENETTA OMALLEY MD [facility] 07-08-2022 17:29-0400 Body temperature 97.5 [degF] Himanshu Mai MD Work Phone: [facility] 07-08-2022 17:29-0400 Body weight 79.02 kg Himanshu Mai MD Work Phone: [facility] 07-08-2022 17:29-0400 Diastolic blood pressure 60 mm[Hg] Himanshu Mai MD Work Phone: [facility] 07-08-2022 17:29-0400 Heart rate 92 /min Himanshu Mai MD Work Phone: [facility] 07-08-2022 17:29-0400 Respiratory rate 16 /min Himanshu Mai MD Work Phone: [facility] 07-08-2022 17:29-0400 SaO2% (BldA) [Mass fraction] 99 % Himanshu Mai MD Work Phone: [facility] 07-08-2022 17:29-0400 Systolic blood pressure 112 mm[Hg] Himanshu Mai MD Work Phone: [facility] 02-20-2021 06:14-0400 Diastolic blood pressure 82 mm[Hg] WHITNEY DURESKA DO [facility] 02-20-2021 06:14-0400 Heart rate 60 /min WHITNEY DURESKA DO [facility] 02-20-2021 06:14-0400 Respiratory rate 16 /min WHITNEY DURESKA DO [facility] 02-20-2021 06:14-0400 Systolic blood pressure 131 mm[Hg] WHITNEY DURESKA DO [facility] 02-20-2021 04:18-0400 Diastolic blood pressure 81 mm[Hg] WHITNEY DURESKA DO [facility] 02-20-2021 04:18-0400 Heart rate 56 /min WHITNEY DURESKA DO [facility] 02-20-2021 04:18-0400 Mean blood pressure 96 mm[Hg] WHITNEY DURESKA DO [facility] 02-20-2021 04:18-0400 Respiratory rate 16 /min WHITNEY DURESKA DO [facility] 02-20-2021 04:18-0400 Systolic blood pressure 125 mm[Hg] WHITNEY DURESKA DO [facility] 02-20-2021 03:15-0400 Heart rate 58 /min WHITNEY DURESKA DO [facility] 02-20-2021 03:15-0400 Respiratory rate 16 /min WHITNEY AGUIARESKA DO [facility] 02-20-2021 02:11-0400 Body height 188 cm WHITNEY AGUIARESKA DO [facility] 02-20-2021 02:11-0400 Body temperature 97.52 [degF] WHITNEY AGUIARESKA DO [facility] 02-20-2021 02:11-0400 Body weight 65.9 kg WHITNEY AGUIARESKA DO [facility] 02-20-2021 02:11-0400 Diastolic blood pressure 86 mm[Hg] WHITNEY DURESKA DO [facility] 02-20-2021 02:11-0400 Mean blood pressure 102 mm[Hg] WHITNEY DURESKA DO [facility] 02-20-2021 02:11-0400 Systolic blood pressure 134 mm[Hg] WHITNEY DURESKA DO [facility] Encounters Encounter Date Encounter Type Care Provider Facility Start: 08-07-2023 End: 08-08-2023 Emergency department patient visit RENETTA OMALLEY MD Facility:[facility] Start: 08-07-2023 End: 08-07-2023 Emergency department patient visit RENETTA OMALLEY MD [facility] Start: 07-08-2022 End: 07-08-2022 ambulatory [facility] Facility:[facility] Start: 07-08-2022 End: 07-08-2022 Patient encounter procedure Himanshu Mai MD Work Phone: [facility] Comment on above: Acute viral syndrome (Primary Dx) Start: 02-20-2021 End: 02-20-2021 Emergency department patient visit WHITNEY CAMACHO DO [facility] Start: 06-24-2019 End: 06-24-2019 Patient encounter procedure DIANA ORTEGA Facility:[facility] Procedures Date Procedure Procedure Detail Performing Clinician Start: 06-08-2020 Blood count hemoglobin Comment on above: Order Comment: Relea se to patient->Automatic 00527&Blood Release to patient->Automatic 44665&Urine Performed By: #### U ACOM #### [facility] [place] [address] Myringotomy and inse rtion of tympanic ventilation tube WHITNEY CAMACHO DO Plan of Treatment Date Care Activity Detail Author Start: 04-07-2024 Urine microalbumin profile DTAP,TDAP,TD (7 - Td or Tdap) [facility] Start: 04-28-2022 DEPRESSION ASSESSMENT DEPRESSION ASSESSMENT [facility] Start: 12-27-2021 Influenza vaccination INFLUENZA (#1) [facility] Start: 2021 HEPATITIS C SCREENING HEPATITIS C SCREENING [facility] Start: 2021 HIV SCREENING HIV SCREENING [facility] Start: 2017 PEDS TO ADULT TRANSITION ANNUAL ASSESSMENT PEDS TO ADULT TRANSITION ANNUAL ASSESSMENT [facility] Start: 2015 PEDS TO ADULT TRANSITION INITIAL DISCUSSION PEDS TO ADULT TRANSITION INITIAL DISCUSSION [facility] Start: 2013 MENINGOCOCCAL B: Consider based on risk (1 of 2 - Risk Bexsero 2-dose series) MENINGOCOCCAL B: Consider based on risk (1 of 2 - Risk Bexsero 2-dose series) [facility] Start: 2009 PNEUMOCOCCAL (1 - PCV) PNEUMOCOCCAL (1 - PCV) [facility] ic Start: 2003 COVID-19 VACCINE (#1) COVID-19 VACCINE (#1) [facility] Influenza virus A an d B RNA and SARS-CoV-2 (COVID-19) N gene panel - Respiratory specimen by BRADLEY with probe detection COVID WITH FLUA+B, ROUTINE Microbiology Routine Acute viral syndrome 07/08/2022 6:44 PM EDT [facility] Work Phone: Immunizations Immunization Date Immunization Notes Care Provider Fa [facility] 04-04-2016 influenza, injectabl e, quadrivalent, contains preservative Himanshu Mai MD Work Phone: [facility] Work Phone: 03-21-2015 influenza, live, intranasal, quadrivalent Himanshu Mai MD Work Phone: [facility] 10-06-2014 human papilloma viru s vaccine, quadrivalent Himanshu Mai MD Work Phone: [facility] 10-06-2014 meningococcal polysaccharide (groups A, C, Y and W-135) diphtheria toxoid conjugate vaccine (MCV4P) Himanshu Mai MD Work Phone: [facility] 06-08-2014 human papilloma viru s vaccine, quadrivalent Himanshu Mai MD Work Phone: [facility] 04-07-2014 human papilloma viru s vaccine, quadrivalent Himanshu Mai MD Work Phone: [facility] 04-07-2014 influenza, live, intranasal, quadrivalent Himanshu Mai MD Work Phone: [facility] 04-07-2014 tetanus toxoid, redu rafael diphtheria toxoid, and acellular pertussis vaccine, adsorbed Himanshu Mai MD Work Phone: [facility] 02-09-2013 influenza virus vacc ine, live, attenuated, for intranasal use Himanshu Mai MD Work Phone: [facility] 04-13-2012 hepatitis A vaccine, unspecified formulation Himanshu Mai MD Work Phone: [facility] 04-06-2012 influenza virus vacc ine, live, attenuated, for intranasal use Himanshu Mai MD Work Phone: [facility] 04-18-2011 hepatitis A vaccine, unspecified formulation Himanshu Mai MD Work Phone: [facility] 11-16-2008 diphtheria, tetanus toxoids and acellular pertussis vaccine Himanshu Mai MD Work Phone: [facility] 11-16-2008 measles, mumps and rubella virus vaccine Himanshu Mai MD Work Phone: [facility] 11-16-2008 poliovirus vaccine, inactivated Himanshu Mai MD Work Phone: [facility] 11-16-2008 varicella virus vaccine Jadyn Mai MD Work Phone: [facility] 04-12-2005 haemophilus influenz ae type b vaccine, HbOC conjugate Himanshu Mai MD Work Phone: [facility] 09-18-2004 diphtheria, tetanus toxoids and acellular pertussis vaccine Himanshu Mai MD Work Phone: [facility] 09-18-2004 hepatitis B vaccine, pediatric or pediatric/adolescent dosage Himanshu Mai MD Work Phone: [facility] 09-18-2004 trivalent poliovirus vaccine, live, oral Himanshu Mai MD Work Phone: [facility] 09-18-2004 varicella virus vaccine Jadyn Mai MD Work Phone: [facility] 03-29-2004 measles, mumps and rubella virus vaccine Himanshu Mai MD Work Phone: [facility] 2003 pneumococcal conjuga te vaccine, 7 valent Himanshu Mai MD Work Phone: [facility] 2003 diphtheria, tetanus toxoids and acellular pertussis vaccine Himanshu Mai MD Work Phone: [facility] 2003 haemophilus influenz ae type b vaccine, HbOC conjugate Himanshu Mai MD Work Phone: [facility] 2003 pneumococcal conjuga te vaccine, 7 valent Himanshu Mai MD Work Phone: [facility] 2003 diphtheria, tetanus toxoids and acellular pertussis vaccine Himanshu Mai MD Work Phone: [facility] 2003 haemophilus influenz ae type b vaccine, HbOC conjugate Himanshu Mai MD Work Phone: [facility] 2003 hepatitis B vaccine, pediatric or pediatric/adolescent dosage Himanshu Mai MD Work Phone: [facility] 2003 pneumococcal conjuga te vaccine, 7 valent Himanshu Mai MD Work Phone: [facility] 2003 trivalent poliovirus vaccine, live, oral Himanshu Mai MD Work Phone: [facility] 2003 diphtheria, tetanus toxoids and acellular pertussis vaccine Himanshu Mai MD Work Phone: [facility] 2003 haemophilus influenz ae type b vaccine, HbOC conjugate Himanshu Mai MD Work Phone: [facility] 2003 hepatitis B vaccine, pediatric or pediatric/adolescent dosage Himanshu Mai MD Work Phone: [facility] 2003 trivalent poliovirus vaccine, live, oral Himanshu Mai MD Work Phone: [facility] Payers Date Payer Category Payer Medicaid [employer] [id number] 2022-[facility] [phone] [address] [place] [address] Medicaid [id number] 2022 Medicaid [id number] 2003 Unknown [id number] 1983 Unknown [id number] 1959 Unknown [id number] Social History Date Type Detail Facility Start: 02-20-2021 Light tobacco smoker (finding) [facility] Sex Assigned At [facility] Start: 07-08-2022 Tobacco smoking stat [facility] Smokes tobacco daily [facility] Work Phone: History of tobacco use Cigarette Smoker C [facility] Work Phone: Start: 07-08-2022 Cigarettes smoked current (pack per day) - Reported 0.3 [facility] Start: 07-08-2022 Tobacco use and exposure Smokeless tobacco non-user [facility] Work Phone: Start: 07-08-2022 Alcohol intake Lifetime non-d fern (finding) [facility] Start: 11-23-2020 History SDOH Alcohol Frequency 1 [facility] Start: 2005 Sex Assigned At Not on file C [facility] Functional Status Date Assessment Result Facility 08-07-2023 Functional Status Independent [facility] 08-07-2023 Functional Status Awake, Resting [facility] Mental Status Date Assessment Result Facility 08-07-2023 Mental Status Orientation Oriented x 4 [facility] 08-07-2023 [facility] 04-13-2012 to 08-08-2023 Himanshu Mai MD - 07/08/2022 5:41 PM EDT Note Date & Type Note Facility 08-08-2023 Hospital Discharge instructions Patient Education 08/07/2023 22:41:42 Constipation (Adult) Constipation (Adult) Constipation means that you have bowel movements that are less frequent than usual. Stools often become very hard and difficult to pass. Constipation is very common. At some point in life, it affects almost everyone. Since everyone's bowel habits are different, what is constipation to one person may not be to another. Your healthcare provider may do tests to diagnose constipation. It depends on what he or she finds when evaluating you. Symptoms of constipation include: Abdominal pain Bloating Vomiting Painful bowel movements Itching, swelling, bleeding, or pain around the anus Causes Constipation can have many causes. These include: Diet low in fiber Too much dairy Not drinking enough liquids Lack of exercise or physical activity (especially true for older adults) Changes in lifestyle or daily routine, including , aging, work, and travel Frequent use or misuse of laxatives Ignoring the urge to have a bowel movement or delaying it until later Medicines, such as certain prescription pain medicines, iron supplements, antacids, certain antidepressants, and calcium supplements Diseases like irritable bowel syndrome, bowel obstructions, stroke, diabetes, thyroid disease, Parkinson disease, hemorrhoids, and colon cancer Complications Potential complications of constipation can include: Hemorrhoids Rectal bleeding from hemorrhoids or anal fissures (skin tears) Hernias Dependency on laxatives Chronic constipation Fecal impaction, a severe form of constipation in which a large amount of hard stool is in your rectum that you can't pass Bowel obstruction or perforation Home care All treatment should be done after talking with your healthcare provider. This is especially true if you have another medical problems, are taking prescription medicines, or are an older adult. Treatment most often involves lifestyle changes. You may also need medicines. Your healthcare provider will tell you which will work best for you. Follow the advice below to help avoid this problem in the future. Lifestyle changes These lifestyle changes can help prevent constipation: Diet. Eat a high-fiber diet, with fresh fruit and vegetables, and reduce dairy intake, meats, and processed foods Fluids. It's important to get enough fluids each day. Drink plenty of water when you eat more fiber. If you are on diet that limits the amount of fluid you can have, talk about this with your healthcare provider. Regular exercise. Check with your healthcare provider first. Medicines Take any medicines as directed. Some laxatives are safe to use only every now and then. Others can be taken on a regular basis. While laxatives don't cause bowel dependence, they are treating the symptoms. So your constipation may return if you don't make other changes. Talk with your healthcare provider or pharmacist if you have questions. Prescription pain medicines can cause constipation. If you are taking this kind of medicine, ask your healthcare provider if you should also take a stool softener. Medicines you may take to treat constipation include: Fiber supplements Stool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 Note HISTORY AND PHYSICAL DATE OF SERVICE: 02/20/2021 ATTENDING PROVIDER: Torito Starr MD PRIMARY CARE PROVIDER: Melissa Castaneda MD CHIEF COMPLAINT: Abdominal pain REASON FOR HOSPITALIZATION: Acute or unresolved changes in physiologic status HISTORY OF PRESENT ILLNESS: Dari is a 15 y.o. male who presents with acute/chronic abdominal pain. Pt has history abdominal pain and is seen by GI. Had been worked up for IBD with upper and lower scopes that were WNL. Pt states he developed worsening abdominal pain yesterday. The pain was in LUQ and epigastric area. Associated nausea without emesis but denies fevers or diarrhea. Pt was taken to OSH where RUQ US read as distended gallbladder with 1.7cm non-mobile stone in neck of gall bladder and wall thickening. CT scan read as hydropic appearance of gallbladder without pericholecystic fluid. Labs were wnl including WBC, lipase and LFTs. Pt was given rocephin/flagyl and transferred to [facility] ED for c/o cholecystitis. In ED, pt did not appear toxic or ill but had mild distress with pain. States pain in the LUQ and epigastric area. TTP with voluntary guarding in LUQ. Repeat RUQ US read as large calcified stone in neck of GB, mild wall thickening with hyperemia. US evidence of cholecystitis. Pt with some nausea in ED. MEDICAL/SURGICAL HISTORY: History reviewed. No pertinent past medical history. Past Surgical History: Procedure Laterality Date ESOPHAGOSCOPY N/A 06/19/2020 ENDOSCOPY (UPPER AND COLONOSCOPY) + biopsies performed by Yeimi Jackson MD at [facility] OR TYMPANOSTOMY TUBE PLACEMENT REVIEW OF SYSTEMS: Constitutional: negative for anorexia and fevers Ears, nose, mouth, throat, and face: negative Respiratory: negative Cardiovascular: negative Gastrointestinal: positive for abdominal pain and nausea Genitourinary:negative Integument: negative Musculoskeletal:negative Neurological: negative HISTORY: Noncontributory DIET HISTORY: Age appropriate / normal for age DRUG/FOOD ALLERGIES: Allergies Allergen Reactions Cat Allergy Other (See Comments) sneezing Dog Allergy Other (See Comments) sneezing Pollen Extract Itching sneezing IMMUNIZATIONS: Not evaluated at this time MEDICATIONS: Medications Prior to Admission Medication Sig Dispense Refill Last Dose omeprazole (PRILOSEC) 20 MG capsule Take 1 Capsule (20 mg) by mouth daily 30 Capsule 3 02/19/2021 at Unknown time polyethylene glycol (MIRALAX;GLYCOLAX) 17 GM/SCOOP powder Take 17 g by mouth daily 507 g 5 02/19/2021 at Unknown time Acetaminophen (TYLENOL PO) Take by mouth. 02/19/2021 at Unknown time dicyclomine (BENTYL) 10 MG capsule Take 2 Capsules (20 mg) by mouth 4 times daily as needed (for abdominal pain) (Patient not taking: Reported on 02/20/2021) 180 Capsule 2 Not Taking at Unknown time ondansetron (ZOFRAN) 4 MG tablet Take 1 Tablet (4 mg) by mouth every 8 hours as needed for Nausea (Patient not taking: Reported on 02/20/2021) 10 Tablet 0 Not Taking at Unknown time cholecalciferol (VITAMIN D3) 1.25 MG (19911 UT) capsule Take 50,000 Units by mouth once a week (Patient not taking: Reported on 02/20/2021) Not Taking at Unknown time SOCIAL/ FAMILY HISTORY: Smoking/Alcohol/Drug Use or Exposure: No Family History Problem Relation Age of Onset Cancer Maternal Grandmother Cancer Maternal Grandfather Cancer Paternal Grandmother Cancer Paternal Grandfather VITAL SIGNS: Vitals: 02/20/21 1200 BP: Pulse: 76 Resp: 12 Temp: PHYSICAL EXAM: General: healthy, well developed, mild distress with pain Head: atraumatic and normocephalic Neuro: alert, oriented appropriately for age Eyes: pupils equal, round, and reactive to light Ears: canals clear, normal, tragus nontender Nose: nares patent without discharge Throat: oropharynx is clear Neck: there is full range of motion Chest/Respiratory: breath sounds even and unlabored, RA Cardiac: regular rate and rhythm Abdomen: abdomen is soft, TTP LUQ, nondistended without rigidity or rebound tenderness Back: negative Rectal: exam deferred Skin: pink, warm, well perfused Lymphatic: no adenopathy noted Musculoskeletal: normal tone, moves all extremities equally with full range of motion DIAGNOSTIC STUDIES REVIEWED: US Upper Quadrant Right Final Result IMPRESSION: Large calcified gallstone with ultrasound evidence of cholecystitis This report has been created using voice recognition software US OSH: gallbladder is distended. 1.7cm non-mobile stone on neck of GB. Thickening of GB wall. collilithiasis with other findings concerning for acute cholecystitis. CT scan OSH: GB appears hydropic. No pericholecystic fluid. Labs from OSH: WBC 9.6 plts 271 Renal panel WNL Total bili 0.6 ast 12 Alt 19 Alk phos 71 Lipase 75 UA WNL ASSESSMENT: Dari is a 15 y.o. male with acute/chronic abdominal pain worsened over last 24 hours. Radiological evidence o (more content not included)... [facility] 02-20-2021 Note CLINICAL HISTORY: ch olelithiasis TECHNIQUE: Sonographic evaluation of the abdominal right upper quadrant was performed. COMPARISON: Outside ultrasound performed at [place] last night FINDINGS: LIVER: Normal. GALLBLADDER: Large calcified stone is present in the neck of the gallbladder. There is mild gallbladder wall thickening with hyperemia CBD: Normal. CBD diameter: 4 mm. PANCREAS: Visualized portions are normal. RIGHT KIDNEY: Normal nondilated duplication collecting system. Right kidney length: 12.7 cm x 4.3 cm cm. IMPRESSION: Large calcified gallstone with ultrasound evidence of cholecystitis This report has been created using voice recognition software Signed by: Dr. Miguel Telles at 02/20/2021 10:05 [facility] 06-19-2020 Note [facility] Dari Mendosa MR#: [id number] : 2005 Room #: 6228/01 Age/Sex: 15 y.o. male Admit Date: 06/16/2020 Admitting: Yeimi Baldwin MD Discharge Date: 06/19/2020 Discharged from: [facility] Attending: Nicko Null MD Final Diagnosis: Chronic Abdominal Pain Significant Findings (Problem List): Active Hospital Problems Diagnosis Chronic abdominal pain Resolved Hospital Problems Diagnosis Date Resolved Abdominal pain 06/19/2020 Reason for Hospitalization: Chronic abdominal pain Discharge Condition: Stable Hospital Course (Care, treatment and services provided): Brief Narrative Hospital Course: Dari Mendosa is a 15 y.o. male with no significant PMH who was directly admitted from the GI office on day of admission for evaluation for IBD. He presented with abd pain and nausea and vomiting with NBNB clear emesis over the past 3 weeks. 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 Endorsed bilateral hip pain. Patient has also had 8-9Ib unintentional weight loss from PCP visit 1 week prior to admission. Patient has been seen by his PCP several times. Labs (05/04/2020) obtained include: Vitamin D which was low at 15.7 (started on supplement improved to 47.5), Celiac IgA 126, TTG IgA 3. He was seen in the ED on 06/08/20. CT abd/Pelvis showed chronic colitis of the descending and rectosigmoid colon with possible terminal ileitis. He was started on Levsin (1 week) and given GI follow up. Patient reported urinary hesitancy and dysuria since starting the Levsin. He was last seen by his PCP on 06/13 and had a negative UA at that time. His home medications were Zofran 4mg PO, omeprazole 20mg daily, and tylenol prn. Labs on admission: CBC Hgb 15.3, ESR 1, THS wnl, Hepatitis panel negative, VZV immune, Vit D 36, BMP wnl, CRP <0.5, HFP wnl, lipase wnl, COVID negative, Quantiferon pending, Calprotectin pending. Patient was constipated on admission and after 1 dose of miralax had a hard formed stool. He had a GI clean out done 06/18 in preparation for a scope 06/19. EGD/Colonoscopy showed normal mucosa, biopsies pending. Immunizations(administered this admission): None Significant Imaging Results: CT Abdomen/pelvis 06/08/2020: IMPRESSION: 1. Findings suspicious for chronic colitis of the descending and rectosigmoid colon as above with possible terminal ileitis 2. Normal appendix. Pending Test Results and Tests to Obtain as Outpatient: In-Process Results Date and Time Order Name Sensitivity Status Description Specimen ID Source 06/19/2020 2:36 PM Surgical Pathology Lab Test In process [id number] 06/17/2020 11:54 AM Calprotectin In process [id number] Preliminary Results No orders found from 05/21/2020 to 06/20/2020. Disposition: He was discharged to home. Discharge Medications: He did have significant changes to their home medications (see below) Medication List START taking these medications Morning Afternoon Evening Bedtime As Needed dicyclomine 10 MG capsule Take 2 Capsules (20 mg) by mouth 4 times daily as needed (for abdominal pain) Commonly known as: BENTYL [ ] [ ] [ ] [ ] [ ] polyethylene glycol 17 GM/SCOOP powder Take 17 g by mouth daily Commonly known as: MIRALAX;GLYCOLAX [ ] [ ] [ ] [ ] [ ] CONTINUE taking these medications which HAVE changed Morning Afternoon Evening Bedtime As Needed ondansetron 4 MG tablet Take 1 Tablet (4 mg) by mouth every 8 hours as needed for Nausea What changed: how to take this when to take this reasons to take this Commonly known as: ZOFRFABIO [ ] [ ] [ ] [ ] [ ] CONTINUE taking these medications which HAVE NOT changed at this visit Morning Afternoon Evening Bedtime As Needed cholecalciferol 1.25 MG (63512 UT) capsule Take 50,000 Units by mouth once a week Commonly known as: VITAMIN D3 [ ] [ ] [ ] [ ] [ ] omeprazole 20 MG capsule Take 1 Capsule (20 mg) by mouth daily Commonly known as: PriLOSEC [ ] [ ] [ ] [ ] [ ] TYLENOL PO Take by mouth. [ ] [ ] [ ] [ ] [ ] STOP taking these medications hyoscyamine 0.125 MG Tabs tablet Commonly known as: LEVSIN Where to Get Your Medications These medications were sent to [facility]/pharmacy #[id number] [place] [phone] dicyclomine 10 MG capsule omeprazole 20 MG capsule ondansetron 4 MG tablet polyethylene glycol 17 GM/SCOOP powder Discharge Instructions: Instructions/Follow Up Future Labs/Procedures Expected by Expires Follow Up with As directed Comments: Please call and schedule an appointment to follow up with your rn mobile Rosanna Mays within a month. [facility], [address] [place] [address] Call sooner if danielio (more content not included)... [facility] 06-16-2020 Note PROCEDURE: ABDOMEN 2 VIEWS CLINICAL HISTORY: diffuse abdominal pain IMPRESSION: The bowel gas pattern appears nonobstructive with usual amount of stool. No airfluid levels or free intraperitoneal air. A 2 mm density in the right lower quadrant could be ingested material or fecalith. The included lung bases are clear. This report has been created using voice recognition software Signed by: Dr. Michael High at 06/16/2020 14:57 [facility] 06-16-2020 Note MEDICAL ADMISSION HI STORY AND PHYSICAL Date of Service: 06/16/2020 Attending Provider: Nicko Null MD Primary Care Provider: Melissa Castaneda MD Chief Complaint: Abdominal pain, Vomiting Reason for Hospitalization: Acute or unresolved changes in physiologic status History of Present illness: IP H&P HPI: Dari Mendosa is a 15 y.o. male with no significant PMH presents with abdominal pain, vomiting and weight loss. Patient presented from the GI office on day of admission for evaluation for IBD. Reports onset of abdominal pain 2 months ago, initially left sided now more on the right side and epigastric. States pain is constant and sharp but waxes and wanes. States pain is typically between 6-10/10. Reports worsening pain for 25 minute intervals which spontaneously resolves without medication. He has had nausea and vomiting with NBNB clear emesis over the past 3 weeks. Also with persistent retching. States abdominal pain is worse with eating. Now with midsternal burning chest pain. He has been unable to keep down fluids since yesterday, has not had anything by mouth today. Stools are typically soft brown and non-bloody. His last stool was 6 days ago, and was hard. Endorses bilateral hip pain. Patient has also had 8-9Ib unintentional weight loss from PCP visit 1 week prior to admission. Patient has been seen by his PCP several times. Labs obtained include: Vitamin D which was low at 15.7 (started on supplement improved to 47.5) , Celiac IgA 126, TTG IgA 3. Patient was seen in the ED 06/08 for abdominal pain and vomiting. Labs including BMP, HFP, CBC, Lipase, CRP, UA, and urine culture were negative. CT abd/Pelvis showed chronic colitis of the descending and rectosigmoid colon with possible terminal ileitis. He was started on Levsin (1 week) and given GI follow up. Patient reports urinary hesitancy and dysuria since starting the Levsin. He was last seen by his PCP on 06/13 and had a negative UA at that time. He is currently on Zofran 4mg PO, omeprazole 20mg daily, and tylenol prn. Of note: Social situation is significant for aunt trying to get guardianship because mother is reportedly using drugs. Patient has been living with maternal aunt over the past 6 months. [phone]. On floor patient complaining of 8/10 lower abdominal pain, left > right and is persistently nauseas. Aunt and grandfather at bedside. 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 has been sexually active with females before, did not use protection, denies concern for STI Suicidality/Mental Health: Has ways to cope with stress reports recent stress custody Confidentiality discussed with teen: yes. Confidentiality discussed with Aunt yes. Review of Systems: CONST: No fever (+)weight loss NEURO: no headache, weakness or numbness Eyes: no eye pain or discharge ENT: no ear pain, rhinorrhea, or sore throat RESP: no cough, shortness of breath CV: no palpitations (+)burning chest pain GI: no diarrhea, (+)abdominal pain (+)vomiting : no hematuria, or discharge (+) urinary hesitancy, dysuria SKIN: no rashes, or itching MSK: no muscle tenderness (+)bilateral hip pain HEME: no bruising or bleeding Medical/Surgical History: No past medical history on file. No past surgical history on file. History: No complications Development History: Milestones: Not pertinent Diet History: Appetite poor Drug/Food Allergies: No Known Allergies Immunizations: Stated as up to date, no records available Medications: No medications prior to admission. 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 No No family history on file. Vital Signs: There were no vitals filed for this visit. Physical Exam: General: alert, appears somewhat uncomfortable, no acute distress Head: normocephalic, atraumatic. Eyes: no eyelid swelling, no conjunctival injection or exudate, pupils equal round and reactive to light. Nose: nares patent, normal mucosa Mouth/Throat: mucous membranes moist, oropharynx clear without lesions Neck: nontender, no mass, no focal lymphadenopathy Chest:/Lung: no increased work of breathing, symmetrical chest rise, good AE with breath sounds clear and equal bilaterally, no wheezing or crackles Ca (more content not included)... [facility] 04-13-2012 History of Past i llness Narrative Problem Noted Date Resolved Date Failed hearing screening 04/13/2012 016 Overview: Followed by Dr. Bacon documented as of this encounter (statuses as of 07/09/2022) [facility] No data available for this section [facility] Evaluation note* Diagnosis Acute viral syndrome- Primary Unspecified viral infection, in conditions classified elsewhere and of unspecified site documented in this encounter [facility] Discharge instructions No data available for this section [facility] Summary Purpose Family History No Family History Records FoundNo Family History Records FoundNo Family History Records Found No data available for this section No Family History Records Found Advance Directives No Advanced Directives Records FoundNo Advanced Directives Records FoundNo Advanced Directives Records FoundNo Advanced Directives Records Found Additional Source Comments (unrecognized sect ion and content) No Status Records FoundNo Status Records FoundNo Status Records FoundNo Status Records Found INFORMATION SOURCE (unrecogn ized section and content) DATE CREATED AUTHOR 06/29/2019 [facility] DATE CREATED AUTHOR AUTHOR'S ORGANIZ ATION 04/14/2021 [facility] DATE CREATED AUTHOR AUTHOR'S ORGANIZ ATION 07/10/2022 [facility] DATE CREATED AUTHOR AUTHOR'S ORGANIZ ATION 08/20/2023 [facility] ([place]) Source Comments (unrecognize d section and content) In the event this informatio n is protected by the Federal Confidentiality of Alcohol and Drug Abuse Patient Records regulations: The Federal rules restrict any use of the information to criminally investigate or prosecute any alcohol or drug abuse patient.[facility] Reason for Visit (unrecogniz ed section and content) Reason Comments Nasal Congestion drainage, cough, sor e throat, vomiting, dizziness x 4 days Care Teams (unrecognized sec tion and content) Aircraft Manager Relationship Specialty Start Date End Date Melissa Castaneda MD [address] [place], [place] [id number] PCP - General Pediatrics 01/01/12 FOR RECORDS PERTAINING TO PATIENTS WHO ARE OR HAVE BEEN ENROLLED IN A CHEMICAL DEPENDENCY/SUBSTANCEABUSE PROGRAM, SOME INFORMATION MAY BE OMITTED. This clinical summary was aggregated from multiple sources. Caution should be exercised in using it in the provision of clinical care. This summary normalizes information from multiple sources, and as a consequence, information in this document may materially change the coding, format and clinical context of patient data. In addition, data may be omitted in some cases. CLINICAL DECISIONS SHOULD BE BASED ON THE PRIMARY CLINICAL RECORDS. [employer] provides no warranty or guarantee of the accuracy or completeness of information in this document.
[2024-03-17 00:44] VITALS: BP 126/69; PULSE 75; RESP 18; TEMP 36.7; O2SAT 97
[2024-03-17] MEDS: Ibuprofen 400 MG Tablet PO (00:49)
[2024-03-17 05:40] VITALS: BP 108/63; PULSE 96; RESP 18; TEMP 36.6; O2SAT 100
--- NOTE | 2024-03-17 07:18 | PCM.PN.HOSP ---
Reason for Visit Reason for Visit: Diagnoses Hypokalemia (03/16/24) Opioid abuse, uncomplicated (03/16/24) Other stimulant abuse, uncomplicated (03/16/24) Poisoning by unspecified narcotics, accidental (unintentional), initial encounter (03/16/24) Tobacco use (03/16/24) Objective Data Objective Data Vital Signs: Vital Signs Temp Pulse Resp BP Pulse Ox O2 Del Method 97.8 F 96 18 108/63 100 Room Air 03/17/24 05:40 03/17/24 05:40 03/17/24 05:40 03/17/24 05:40 03/17/24 05:40 03/17/24 05:40 Oxygen Delivery Method Room Air Weight: 159 lb 3.2 oz Body Mass Index (BMI) 20.4 Intake & Output: Intake and Output for Last 24 Hours 03/15/24 03/16/24 03/17/24 23:59 23:59 23:59 Intake Total 1500 / 1500 Balance 1500 / 1500 Lab / Micro Data 03/16/24 14:25 03/17/24 06:24 Labs: Laboratory Results - last 24 hr 03/16/24 14:20: Urine Opiates Screen NEGATIVE, Urine Methadone Screen NEGATIVE, Ur Barbiturates Screen NEGATIVE, Ur Phencyclidine Scrn NEGATIVE, Ur Amphetamines Screen POSITIVE H, MDMA (Ecstasy) Screen POSITIVE H, U Benzodiazepines Scrn NEGATIVE, Urine Cocaine Screen NEGATIVE, U Cannabinoids Screen POSITIVE H, Ur Drug Screen Comment 03/16/24 14:25: WBC 9.1, RBC 5.45, Hgb 16.2, Hct 46.7, MCV 85.7, MCH 29.7, MCHC 34.7, RDW Std Deviation 38.8, RDW Coeff of Phuong 12.7, Plt Count 323, MPV 8.9, Immature Gran % (Auto) 0.600, Neut % (Auto) 60.2, Lymph % (Auto) 31.2, [place] % (Auto) 6.1, Eos % (Auto) 1.0, Baso % (Auto) 0.9, Absolute Neuts (auto) 5.5, Absolute Lymphs (auto) 2.83, Nucleated RBC % 0, Sodium 136, Potassium 3.3 L, Chloride 100, Carbon Dioxide 28.0, Anion Gap 8, BUN 12, Creatinine 1.04, Estim Creat Clear Calc 129.65, Est GFR (MDRD) Af Amer 116, Est GFR (MDRD) Non-Af 96, BUN/Creatinine Ratio 11.5, Glucose 131 H, Calcium 9.1, Ethyl Alcohol < 3.0 Physical Exam Narrative Seen and examined. Patient was little lethargic but awake. States he smokes/snorts methamphetamine and opioid. Denies IV needle use. Denies history of chronic hep C, HIV or hep B. Physical exam General: Awake, mild drowsy/lethargy. Oriented x3, Cooperative HEENT: Atraumatic, PERRLA, EOMI, Normocephalic Oral: No Gingival or Mucosal Lesions/ Ulcerations Neck: Supple, No JVD, Negative Carotid Bruits Chest wall/Lungs: Air entry diminished in bilateral lung bases. No crepitation/rhonchi Cardiovascular: Regular rate, Regular Rhythm, Normal S1, Normal S2, No M/G/R Abdomen: Bowel Sounds Present, Soft, Non Tender, Non-Distended : No dysuria. No renal angle tenderness. No suprapubic tenderness. Extremities: No edema, Capillary Refill Less than 3 Seconds Skin: No rashes, No breakdown Musculoskeletal: No Tenderness to Palpation of Joints or Extremities Neurological: Cranial nerves II-XII grossly intact, DTR 2+/4. No acute focal neurological deficit. Psych/Mental Status: Flat affect. Lethargic. Mild opioid withdrawal Assessment & Plan Assessment/Plan (1) Opiate abuse, continuous: (2) Methamphetamine abuse: (3) Tobacco abuse: (4) Opiate overdose: (5) Hypokalemia: PLAN: Plan This 18-year-old gentleman was admitted with opioid overdose had ED presentation 1. Acute opioid overdose, progressed to opioid withdrawal syndrome: Patient has history of chronic opioid use, is snorts/smokes opioid fentanyl. Patient is admitted on MedSurg floor. The patient is started on buprenorphine along with other adjunctive medications as needed for medical stabilization as per order set of opioid withdrawal syndrome.Patient also on trazodone, hydroxyzine, gabapentin as needed ordered. Advised quitting opioid use. mergers and acquisitions manager consult. 2. Chronic methamphetamine use disorder: Patient states he usually uses methamphetamine and sometimes opioid. 3. Hypokalemia potassium was replaced. Repeat potassium normal. Serum calcium, magnesium and phosphorus level normal. 4. Chronic marijuana use and smoking: Recommended to quit. 5. Chronic smoking cigarettes/nicotine dependence: Nicotine patch is ordered. Patient states he smokes half pack to 1 pack daily since teenage. 6. Other social issues including homelessness: mergers and acquisitions manager is involved. 7. DVT prophylaxis -Low risk -Encourage early and frequent ambulation CODE STATUS -Full code Charges/Coding Visit Charges Inpatient E&M: 42999 Subs Hosp L2
[2024-03-17 07:33] LABS: Anion Gap 5 (5-15); BUN 11 mg/dL (7-18); BUN/Creat Ratio 11.7 RATIO (10-20); Calcium,Total 8.6 mg/dL (8.5-10.1); Chloride 102 mmol/L (98-107); Creatinine, Serum 0.94 mg/dL (0.70-1.30); EST Glomerular Filtration Rate 107 mL/min (>60); Est Glom Filt Rate - Afr Amer 130 mL/min (>60); Estimated Creatinine Clearance 128.04 ml/min; Glucose 114 mg/dL (74-106); Magnesium 2.1 mg/dL (1.6-2.6); Phosphorus 3.4 mg/dL (2.5-4.9); Potassium 4.1 mmol/L (3.5-5.1); Sodium Level 136 mmol/L (136-145)
[2024-03-17 08:56] VITALS: BP 125/70; PULSE 93; RESP 16; TEMP 36.7; O2SAT 96
--- NOTE | 2024-03-17 11:02 | CASEMGMT ---
Social Work- SW met with pt to conduct SDOH and address self-pay status. Pt reports that he has had dx of PTSD, anxiety, and depression since childhood and received counseling through [facility] until age 16. Pt was previously prescribed psychotropics for dx as well. Pt felt counseling and medication was effective at addressing symptoms as a child. Pt reports that he began using 3 years ago with life changes that occurred as he turned 16. Pt reports that he has not had a job in [employer] . Pt reports that he was clean awhile ago for 5 months and held a job at [employer] during that time. Pt has been living on [address] for the past couple months; prior to that pt was couch surfing. Pt reports that he has never had substance use treatment. Pt reports that substance use has impacted relationships, makes it hard to hold a job, and has been a means by which to deal with mental health issues. Pt reports that he has a bicycle for transportation and utilizes served meals and food pantries. Pt does not utilize shelters. Pt has a ground nuclear weapons assembly officer, Rosalind Carney, that he would like [facility]TY to notify that he is here as he believes he has an appointment/call-in. Pt met with [employer] rep; pt believes he still had medicaid. Pt declined inpatient treatment at d/c,stating that he has reached out to ct ex to see if he can stay with her for a couple weeks at d/c; ex is agreeable. Pt reports his dog, Baby, of 11 years, is living with his ex and he feels it will be a healthy place to reside. 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 LETTY provided numerous resources as detailed in SDOH. [facility]TY remains available to follow. VIOLET Sarabia
--- NOTE | 2024-03-17 12:02 | ADDICTION ---
This advertising writer met with PT to conduct ASAM, MSE, DUDIT assessments and plan for d/c. PT A+Ox4 and participated actively. All assessments completed. PT plans to f/u with [facility] for follow-up treatment services. Mom will transport him to [facility] after d/c. Her phone number is [phone].
[2024-03-17 14:00] VITALS: BP 114/65; PULSE 81; RESP 18; TEMP 36.8; O2SAT 98
--- NOTE | 2024-03-17 17:34 | NURSING ---
Walked in room to check on pt and he said he was not having any withdraw symptoms and wished to leave AMA. Form was signed and pt toes were opened and Dr. Ram was made aware.
--- NOTE | 2024-03-17 18:35 | PCM.DC.SUM ---
Providers Date of Admission: 03/16/24 Date of Discharge: 03/17/24 Primary Care Physician: No Primary Care Phys Reason For Visit: OPIATE DETOX Diagnosis Discharge Diagnosis (1) Opiate abuse, continuous: Status: Acute Code(s): F11.10 - Opioid abuse, uncomplicated (2) Methamphetamine abuse: Status: Acute Code(s): F15.10 - Other stimulant abuse, uncomplicated (3) Tobacco abuse: Status: Acute Code(s): Z72.0 - Tobacco use (4) Opiate overdose: Status: Acute Code(s): T40.601A - Poisoning by unspecified narcotics, accidental (unintentional), initial encounter (5) Hypokalemia: Status: Acute Code(s): E87.6 - Hypokalemia Plan This 18-year-old gentleman was admitted with opioid overdose had ED presentation 1. Acute opioid overdose, progressed to opioid withdrawal syndrome: Patient has history of chronic opioid use, is snorts/smokes opioid fentanyl. Patient is admitted on MedSur floor. The patient is started on buprenorphine along with other adjunctive medications as needed for medical stabilization as per order set of opioid withdrawal syndrome.Patient also on trazodone, hydroxyzine, gabapentin as needed ordered. Advised quitting opioid use. senior branch manager consult. 03/17: Patient signed AMA. Nurse informed me. He signed the AMA paperwork. Risks and complications were informed to the patient. 2. Chronic methamphetamine use disorder: Patient states he usually uses methamphetamine and sometimes opioid. 3. Hypokalemia potassium was replaced. Repeat potassium normal. Serum calcium, magnesium and phosphorus level normal. 4. Chronic marijuana use and smoking: Recommended to quit. 5. Chronic smoking cigarettes/nicotine dependence: Nicotine patch is ordered. Patient states he smokes half pack to 1 pack daily since teenage. 6. Other social issues including homelessness: senior branch manager is involved. 7. DVT prophylaxis -Low risk -Encourage early and frequent ambulation CODE STATUS -Full code Medications at Discharge Home Medications NK 03/16/24 Physical Exam Narrative Please see the progress note of the same date. Medical Records Data Homelessness:: Unsheltered Weight / BMI Weight Weight: 159 lb 3.2 oz Body Mass Index (BMI) 20.4 ABG / Lab / Microbiology Data 03/16/24 14:25 03/17/24 06:24 D/C Instructions DC O2, CPAP, BIPAP Needs Additional Home O2 Discharge instructions: No DC home with Oxygen: No Meaningful Use Info Meaningful Use Meaningful Use Diagnoses (Choose all that apply): None applicable Ischemic Stroke Statin Dosing Therapy Reference: STATIN DOSE THERAPY REFERENCE: * Patients > 75 years receive moderate or high dose statin therapy. * Patients 75 years or YOUNGER should receive HIGH intensity statin dose unless contraindicated. You will be required to document reason for non-treatment if statin daily dose does not meet guidelines. HIGH DOSE STATIN THERAPY DAILY Atorvastatin > than or = to 40 mg Rosuvastatin > than or = to 20 mg Amlodipine + Atorvastatin > than or = to 2.5/40 mg Ezetimibe + Simvastatin 10/80 mg Simvastatin 80mg Discharge Plan Admission Admit Date/Time: 03/16/24 18:38 Attending Provider: Christian Ram Primary Care Provider: Care Physician,No Primary Consulting Providers: Kimberly Liu Discharge Orders/Prescriptions Prescriptions: No Action NK Referrals / Follow Up: Care Physician,No Primary [Primary Care Provider] - Disposition Disposition (needs filled in before D/C Order can be placed): Against Medical Advice Charges/Coding Visit Charges Inpatient E&M: 26827 Disch Hosp
== END 2024-03-17 17:40 | disposition left against medical advice (07) | DRG 918 ==
LOC: ED 18:27 → MS3 18:50
PROVIDERS: Admitting Provider Internal Medicine; Emergency Provider Emergency Medicine; Visit Provider Internal Medicine
DX: T40.2X1A Poisoning by other opioids, accidental (unintentional), initial encounter (principal); Z59.00 Homelessness unspecified; F11.23 Opioid dependence with withdrawal; E87.6 Hypokalemia; F15.10 Other stimulant abuse, uncomplicated; F17.210 Nicotine dependence, cigarettes, uncomplicated; F17.290 Nicotine dependence, other tobacco product, uncomplicated; Z90.49 Acquired absence of other specified parts of digestive tract
CPT/HCPCS: 36415; 80048; 80307; 82077; 83735; 84100; 85025; 99283; A4216; J2405